=== PATIENT | female | born 1935 | race Caucasian/White ===

== ENCOUNTER 2017-04-16 00:47 | Emergency (ER) | payer OTHER, MEDICARE ==
[2017-04-16 01:16] VITALS: BP 95/42; PULSE 99; TEMP 97.5; BMI 21.6
--- NOTE | 2017-04-16 01:21 | PDOC ---
History of Present Illness - General History Source: Patient, Old Records Exam Limitations: No Limitations - History of Present Illness Initial Comments: 04/16/17 01:25 The patient is a 81 year old female, with a significant past medical history of COPD, HTN and thyroid disease, who presents to the emergency department with shortness of breath for the past 3 hours. She reports that she has been using her inhaler with minimal relief of her symptoms. She notes that she has not been admitted for over a year. She reports that she has a F/U appointment with her youth advocate on 04/21/17 for regular follow up. The patient denies chest pain, headache and dizziness. Denies fever, chills, nausea, vomit, diarrhea and constipation. Denies dysuria, frequency, urgency and hematuria. 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 Bryan PMD - Dr. Cecilio Noel <Reji Kern - Last Filed: 04/16/17 01:25> <Dorothy Marr - Last Filed: 04/16/17 01:44> - General Chief Complaint: Weakness Stated Complaint: FLU LIKE SYMPTONS Time Seen by Provider: 04/16/17 01:09 Past History <Reji Kern - Last Filed: 04/16/17 01:25> - Past Medical History COPD: Yes HTN: Yes Thyroid Disease: Yes - Suicide/Smoking/Psychosocial Hx Smoking Status: No Smoking History: Unknown if ever smoked Have you smoked in the past 12 months: No Number of Cigarettes Smoked Daily: 0 If you are a former smoker, when did you quit?: 1995 Information on smoking cessation initiated: No Hx Alcohol Use: No Drug/Substance Use Hx: No Substance Use Type: None <Dorothy Marr - Last Filed: 04/16/17 01:44> - Past Medical History Allergies/Adverse Reactions: Allergies Allergy/AdvReac Type Severity Reaction Status Date / Time No Known Allergies Allergy Verified 04/16/17 01:12 Home Medications: Ambulatory Orders Aspirin [ASA -] 81 mg PO DAILY #0 tab.chew 08/21/12 Amlodipine Besylate 10 mg PO DAILY 06/12/15 Levothyroxine [Synthroid -] 50 mcg PO DAILY 06/12/15 Metoprolol Succinate [Toprol Xl -] 25 mg PO DAILY 06/12/15 Olmesartan/Hydrochlorothiazide [Benicar Hct 40-25 mg Tablet] 1 each PO DAILY 02/14 Review of Systems - Review of Systems Able to Perform ROS?: Yes Comments:: 04/16/17 01:26 GENERAL/CONSTITUTIONAL: No fever or chills. HEAD, EYES, EARS, NOSE AND THROAT: No change in vision. No ear pain or discharge. No sore throat.- CARDIOVASCULAR: (+) Shortness of breath. No chest pain RESPIRATORY: No cough, wheezing, or hemoptysis. GASTROINTESTINAL: No nausea, vomiting, diarrhea or constipation. GENITOURINARY: No dysuria, frequency, or change in urination. MUSCULOSKELETAL: No joint or muscle swelling or pain. No neck or back pain. SKIN: No rash NEUROLOGIC: No headache, vertigo, loss of consciousness, or change in strength/ sensation. ENDOCRINE: No increased thirst. No abnormal weight change HEMATOLOGIC/LYMPHATIC: No anemia, easy bleeding, or history of blood clots. ALLERGIC/IMMUNOLOGIC: No hives or skin allergy. <Reji Kern - Last Filed: 04/16/17 01:25> *Physical Exam - Vital Signs Last Vital Signs Temp Pulse Resp BP Pulse Ox 97.5 F L 99 H 14 95/42 96 04/16/17 01:12 04/16/17 01:12 04/16/17 01:12 04/16/17 01:12 04/16/17 01:12 - Physical Exam Comments: 04/16/17 01:26 GENERAL: (+) Pale appearing. Awake, alert, and fully oriented, in no acute distress HEAD: No signs of trauma, normocephalic, atraumatic EYES: PERRLA, EOMI, sclera anicteric, conjunctiva clear ENT: Auricles normal inspection, hearing grossly normal, nares patent, oropharynx clear without exudates. Moist mucosa NECK: Normal ROM, supple, no lymphadenopathy, JVD, or masses LUNGS: (+) Completely diminished breath sounds. No distress, speaks full sentences. HEART: Regular rate and rhythm, normal S1 and S2, no murmurs, rubs or gallops, peripheral pulses normal and equal bilaterally. ABDOMEN: Soft, nontender, normoactive bowel sounds. No guarding, no rebound. No masses EXTREMITIES : Normal inspection, Normal range of motion, no edema. No clubbing or cyanosis. NEUROLOGICAL: Cranial nerves II through XII grossly intact. Normal speech, normal gait, no focal sensorimotor deficits SKIN: Warm, Dry, normal turgor, no rashes or lesions noted. <Reji Kern - Last Filed: 04/16/17 01:25> - Vital Signs Last Vital Signs Temp Pulse Resp BP Pulse Ox 97.5 F L 99 H 14 95/42 96 04/16/17 01:12 04/16/17 01:12 04/16/17 01:12 04/16/17 01:12 04/16/17 01:12 <Dorothy Marr - Last Filed: 04/16/17 01:44> Heart Score/ECG Review - ECG Intrepretation Comment:: 04/16/17 01:42 sinus at 98, Rward axis, incomplete RBBB, no acute st/t wave findings 04/16/17 01:43 ekg unchanged from prior <Dorothy Marr - Last Filed: 04/16/17 01:44> Medical Decision Making - Medical Decision Making 04/16/17 01:38 a/p: 81yo female with sob since 10p tonight -hx of emphysema - used inhalers without relief -pt is deaf, daughter is at the bedside, pt speaking in full sentences -diminished BS - no wheezing, suspect COPD exacerbation no rales or rhonchi will give nebs, solumedrol, ivf hydration -will check labs, cxr no f/c no cough no abd pain pt is pale on exam - will check cbc 04/16/17 01:41 pt will be signed out the oncoming ED physician pending labs, cxr, ekg and re- eval <Dorothy Marr - Last Filed: 04/16/17 01:44> *DC/Admit/Observation/Transfer - Attestations Scribe Attestion: 04/16/17 01:26 Documentation prepared by Reji Kern, acting as medical technologist blood bank for Dorothy Marr DO <Reji Kern - Last Filed: 04/16/17 01:25> - Attestations Physician Attestion: 04/16/17 01:40 I, Dr. Dorothy Marr, DO, attest that this document has been prepared under my direction and personally reviewed by me in its entirety. I further attest, that it accurately reflects all work, treatment, procedures and medical decision -making performed by me. <Dorothy Marr - Last Filed: 04/16/17 01:44> Diagnosis at time of Disposition: Dyspnea - Referrals Referrals: Cecilio Noel MD [Staff Physician] -
[2017-04-16] MEDS ORDERED: ALBUTEROL SO4 2.5/IPRATROPIUM 0.5 INH SOL 3 ML VIAL.NEB. NEB ONE ×3 (01:22→01:44)
[2017-04-16] MEDS ORDERED: methylPREDNISolone NA SUCC 125 MG/2 ML VIAL IVPB ONE (01:22)
[2017-04-16] MEDS ORDERED: SODIUM CHLORIDE 0.9% 1000 ML INFUS.BAG IV ONE (01:22)
[2017-04-16] MEDS ORDERED: methylPREDNISolone NA SUCC 125 MG/2 ML VIAL ONE (01:44)
[2017-04-16 01:47] LABS: BASO % 0.4 % (0-2.0); EOS % 0.2 % (0-4.5); HEMATOCRIT 36.2 % (32.4-45.2); HEMOGLOBIN 12.1 GM/dL (10.7-15.3); LYMPH % 8.8 % (8-40); MCH 28.2 pg (25.7-33.7); MCHC 33.3 g/dl (32.0-36.0); MEAN CELL VOLUME 84.7 fl (80-96); MEAN PLT VOLUME 9.5 fl (7.5-11.1); MONO % 6.8 % (3.8-10.2); NEUT % 83.8 % (42.8-82.8); PLATELET COUNT 374 K/MM3 (134-434); RBC 4.28 M/mm3 (3.60-5.2); RDW 14.4 % (11.6-15.6); WHITE BLOOD COUNT 9.9 K/mm3 (4.0-10.0)
[2017-04-16 02:12] LABS: ANION GAP 14 (8-16); BILIRUBIN,TOTAL 0.4 mg/dL (0.2-1.0); BLOOD UREA NITROGEN 35 mg/dL (7-18); CALCIUM 9.4 mg/dL (8.5-10.1); CHLORIDE 99 mmol/L (98-107); CO2 24 mmol/L (21-32); CREATININE 1.4 mg/dL (0.55-1.02); GLUCOSE,RANDOM 129 mg/dL (74-106); POTASSIUM 4.5 mmol/L (3.5-5.1); SGOT/AST 11 U/L (15-37); SGPT/ALT 19 U/L (12-78); SODIUM 137 mmol/L (136-145); TOT PROT 6.4 g/dl (6.4-8.2)
[2017-04-16 02:14] LABS: ALK PHOS 106 U/L (45-117)
--- NOTE | 2017-04-16 03:37 | PDOC ---
*Physical Exam - Vital Signs Last Vital Signs Temp Pulse Resp BP Pulse Ox 97.5 F L 99 H 14 95/42 96 04/16/17 01:12 04/16/17 01:12 04/16/17 01:12 04/16/17 01:12 04/16/17 01:12 ED Treatment Course - LABORATORY CBC & Chemistry Diagram: 04/16/17 01:32 04/16/17 01:32 - ADDITIONAL ORDERS Additional order review: Laboratory Results 04/16/17 01:32 Sodium 137 Potassium 4.5 Chloride 99 Carbon Dioxide 24 Anion Gap 14 BUN 35 H Creatinine 1.4 H Creat Clearance w eGFR 36.27 Random Glucose 129 H Calcium 9.4 Total Bilirubin 0.4 D AST 11 L ALT 19 Alkaline Phosphatase 106 Creatine Kinase 44 Troponin I < 0.02 Total Protein 6.4 Albumin 3.0 L 04/16/17 01:32 RBC 4.28 MCV 84.7 MCHC 33.3 RDW 14.4 MPV 9.5 Neutrophils % 83.8 H Lymphocytes % 8.8 D Monocytes % 6.8 Eosinophils % 0.2 Basophils % 0.4 - Medications Given in the ED: ED Medications Discontinued Medications Generic Name Dose Route Start Last Admin Trade Name Freq PRN Reason Stop Dose Admin Albuterol/Ipratropium 1 amp 04/16/17 01:22 04/16/17 01:58 Duoneb - NEB 04/16/17 01:23 1 amp ONCE ONE Administration Albuterol/Ipratropium 1 amp 04/16/17 01:23 04/16/17 01:59 Duoneb - NEB 04/16/17 01:24 1 amp ONCE ONE Administration Methylprednisolone Sodium Succinate 125 mg 04/16/17 01:22 04/16/17 01:59 Solu-Medrol - IVPB 04/16/17 01:23 125 mg ONCE ONE Administration Sodium Chloride 1,000 ml 04/16/17 01:22 04/16/17 01:59 Normal Saline - IV 04/16/17 01:23 1,000 ml ONCE ONE Administration Medical Decision Making - Medical Decision Making 04/16/17 03:36 Pt feels better after treatment. Pt will be discharged Rx Medrol Dose benito. sent to pharmacy. *DC/Admit/Observation/Transfer Diagnosis at time of Disposition: Dyspnea - Discharge Dispostion Disposition: HOME Condition at time of disposition: Stable Admit: No - Referrals Referrals: Cecilio Noel MD [Primary Care Provider] - - Patient Instructions Printed Discharge Instructions: DI for Shortness of Breath Additional Instructions: Please follow up with your doctor on your scheduled appointment. TAke medication as directed. Return if any problems. - Post Discharge Activity
--- NOTE | 2017-04-16 11:48 | EKG ---
Test Reason : Blood Pressure : / mmHG Vent. Rate : 098 BPM Atrial Rate : 098 BPM P-R Int : 170 ms QRS Dur : 112 ms QT Int : 372 ms P-R-T Axes : 071 093 040 degrees QTc Int : 474 ms POOR DATA QUALITY, INTERPRETATION MAY BE ADVERSELY AFFECTED NORMAL SINUS RHYTHM POSSIBLE LEFT ATRIAL ENLARGEMENT RIGHTWARD AXIS INCOMPLETE RIGHT BUNDLE BRANCH BLOCK BORDERLINE ECG WHEN COMPARED WITH ECG OF 12-JUN-2015 07:38, INCOMPLETE RIGHT BUNDLE BRANCH BLOCK HAS REPLACED RIGHT BUNDLE BRANCH BLOCK Confirmed by NABOR MORE MD ([id number]) on 04/16/2017 11:47:51 AM Referred By: Confirmed By:NABOR MORE MD
== END 2017-04-16 04:44 | disposition home or self-care (01) ==
LOC: JER 00:47
PROC: 3E0F7GC Introduction of Other Therapeutic Substance into Respiratory Tract, Via Natural or Artificial Opening (ICD-10-PCS; principal; 2017-04-16)
PROC: 3E0F7GC Introduction of Other Therapeutic Substance into Respiratory Tract, Via Natural or Artificial Opening (ICD-10-PCS; 2017-04-16)
PROC: 3E0333Z Introduction of Anti-inflammatory into Peripheral Vein, Percutaneous Approach (ICD-10-PCS; 2017-04-16)
DX: J44.9 Chronic obstructive pulmonary disease, unspecified (principal); R06.02 Shortness of breath; I10 Essential (primary) hypertension; E03.9 Hypothyroidism, unspecified
CPT/HCPCS: 36415; 71046-TC-FY; 80053; 82550; 84484; 85025; 93005; 93010; 99281-25

== ENCOUNTER 2018-05-16 11:41 | Inpatient (IN) | payer OTHER, MEDICARE ==
--- NOTE | 2018-05-16 12:05 | PDOC ---
History of Present Illness - General Chief Complaint: CVA/TIA Stated Complaint: POSSIBLE STROKE Time Seen by Provider: 05/16/18 11:44 - History of Present Illness Initial Comments: The pt is an 83F w/ a reported history of possible CVA w/ residual RUE tremor, HTN, hypothyroidism who presents for evaluation for stroke symptoms. Per the daughter, the pt was last known at her baseline yesterday at approximately 1700 and was last seen at 2100 but the daughter did not speak with the pt at that time. At 0500 today, the daughter noted that the pt was unable to speak or take her medications. She also noted RUE weakness at that time. Daughter denies any noticed recent illness, fevers, complaints, or known injury/ trauma. Daughter also denies known history of Parkinson's 05/16/18 12:06 tPA Exclusion checklist 3-4.5h - Time Elapsed Date last known well: 05/15/18 Time last known well: 17:00 Elaspsed time: 1 Day(s) and 1 Hour(s) and 59 Minutes - Ineligibility reason(s) Reasons No tPA given: Outside of window - delayed arrival NIH Stroke Scale - Last Known Well Date/Time & Onset Date Last Known Well: 05/15/18 Time Last Known Well: 17:00 - Initial Evaluation Level of consciousness: Alert Ask patient the month and their age: Both incorrect Ask patient to open & close eyes; make fist and let go: Both incorrect Best gaze (horizontal eye movement): Normal Visual field testing: No visual field loss Facial paresis (Show teeth/raise eyebrows/close eyes tight): Minor paralysis ( flattened nasolabial fold, asymmetry on smiling) (minor R nasolabial flattening) Motor Function: Left Arm: Normal Motor Function: Right Arm: No effort against gravity (RUE tremor and rigidity) Motor Function: Left Leg: Some effort against gravity (withdraw to pain) Motor Function: Right Leg: Some effort against gravity (withdraw to pain) Limb Ataxia: Present in one limb (RUE tremor) Sensory(Use pinprick test arms,legs,trunk,face/side to side): Normal Best language (Describe picture, name items, read sentences): Severe aphasia Dysarthria (read several words): Near unintelligible or unable to speak Extinction and Inattention: No abnormality - Total Score NIH Stroke Scale Score: 17 Past History - Past Medical History Allergies/Adverse Reactions: Allergies Allergy/AdvReac Type Severity Reaction Status Date / Time No Known Allergies Allergy Verified 04/16/17 01:12 Home Medications: Ambulatory Orders Aspirin [ASA -] 81 mg PO DAILY #0 tab.chew 08/21/12 Amlodipine Besylate 10 mg PO DAILY 06/12/15 Levothyroxine [Synthroid -] 75 mcg PO DAILY 06/12/15 Metoprolol Succinate [Toprol Xl -] 25 mg PO DAILY 06/12/15 Olmesartan/Hydrochlorothiazide [Benicar Hct 40-25 mg Tablet] 1 each PO DAILY 02/14 Methylprednisolone [Medrol Dose Marco A] 4 mg PO ASDIR #21 tablet 04/16/17 CVA: Yes COPD: Yes HTN: Yes Thyroid Disease: Yes - Immunization History Immunization Up to Date: Yes - Suicide/Smoking/Psychosocial Hx Smoking Status: No Smoking History: Never smoked Have you smoked in the past 12 months: No Number of Cigarettes Smoked Daily: 0 If you are a former smoker, when did you quit?: 1995 Hx Alcohol Use: No Drug/Substance Use Hx: No Substance Use Type: None Review of Systems - Review of Systems Able to Perform ROS?: No (2/2 medical condition) *Physical Exam - Vital Signs Last Vital Signs Temp Pulse Resp BP Pulse Ox 97.4 F L 92 H 20 126/50 L 99 05/16/18 11:51 05/16/18 11:51 05/16/18 11:51 05/16/18 11:51 05/16/18 11:51 - Physical Exam Comments: GENERAL: Awake, in no apparent distress HEAD: No signs of trauma, normocephalic, atraumatic EYES: PERRLA, EOMI, tracts movement ENT: Hearing grossly normal, nares patent, oropharynx clear without exudates. Moist mucosa LUNGS: No distress, speaks full sentences, clear to auscultation bilaterally HEART: Regular rate and rhythm, normal S1 and S2, no murmurs appreciated, peripheral pulses normal and equal bilaterally ABDOMEN: Soft, non-distended, with normoactive bowel sounds EXTREMITIES: RUE tremor; no lesions/abrasions/lacerations noted; all extremities with movement (further described below) NEUROLOGICAL: Pt able to track, blink, smile, hearing grossly intact; does not follow commands; not able to say anything other than 'yeah' and laugh; RUE w/ tremor and rigidity; LUE w/o drift and FROM; BLE withdraw to pain but unable to maintain straight leg raise (possibly 2/2 not understanding instruction vs decreased strength) SKIN: Warm, Dry 05/16/18 18:51 Moderate Sedation - Procedure Monitoring Vital Signs: Procedure Monitoring Vital Signs Temperature 97.4 F L 05/16/18 11:51 Pulse Rate 92 H 05/16/18 11:51 Respiratory Rate 20 05/16/18 11:51 Blood Pressure 126/50 L 05/16/18 11:51 O2 Sat by Pulse Oximetry (%) 99 05/16/18 11:51 ED Treatment Course - LABORATORY CBC & Chemistry Diagram: 05/16/18 13:11 05/16/18 13:11 Medical Decision Making - Medical Decision Making The pt is an 83F w/ a history previous CVA, asthma, hypothyroidism, HTN who presents for evaluation of stroke CT Head w/ intracranial hemorrhage within L frontal lobe w/ mild mass effect Labs sent/pending Case discussed w/ NSGY and Neurology: Keppra 1g IV once Hold ASA Plan for admission to ICU -Case discussed with Dr. Alcantar and ICU resident Mild leukocytosis to 14.7 No anemia No RUSSELL Lytes wnl Trop I neg 05/16/18 12:53 CXR w/o acute pathology 05/16/18 18:57 *DC/Admit/Observation/Transfer Diagnosis at time of Disposition: Hemorrhagic stroke - Discharge Dispostion Condition at time of disposition: Guarded Decision to Admit order: Yes - Referrals - Patient Instructions - Post Discharge Activity
[2018-05-16] MEDS ORDERED: levETIRAcetam 500 MG/5 ML INJECTION VIAL IVPB ONE ×2 (12:52→14:22)
--- NOTE | 2018-05-16 13:18 | CONSULT ---
Consult Consult Specialty:: ICU Referred by:: ED Reason for Consultation:: Hemorhagic Stroke - History of Present Illness Chief Complaint: R sided weakness and aphasia History of Present Illness: Pt is an 83 yo F with PMHx of hypothyroidism, HTN, previous CVA (RUE tremor residual) on ASA presenting with last known well at 5pm yesterday and now aphasia (expressive and possible receptive), and weakness of RUE and RLE noted since 9am. Pt lives with daughter and yesterday was able to speak (yell at her daughter), feed herself at around 5pm then went to bed. Daughter checked on her around 9pm with lights off and noted her sleeping. This am around 4am, when she did not get up to use the bathroom, daughter was concerned and checked on her by 5am. Pt was able to grasp the medication (synthroid) at 5am but could not lift her hand up to take it. By 9am patient was unable to use her RUE to feed herself, or raise her RLE while being dressed. Daughter also thought she noted flattening of her face. Patient has been awake, no seizures, family reports arrhythmias (possible jeremy- tachy) in past. Daughters say patient uses hearing aid (as she selectively obeys commands). ED dicussed with neuro- Dr Fair and NeuroSx- Dr Marin No surgical intervention at this time ICU monitoring recommended with BP control on home meds CTA- for aneurysm eval and follow up CT in am CT brain: Hemorrhagic stroke in L frontal medial 3.0x 2.5 with some midline shift NIHSS in ED Alert-0 Aphasic-+2 Performs 1 task-+1 Normal gaze-0 Visual loss-0 Facial Palsy-0 Left arm motor drift-0 R arm motor drift-+3 Left leg motor drift-+2 R leg motor drift-+3 Ataxia-0 Sensation-0 Aphasia-+2 Dysarthria-+1 Extinction-0 NIHSS-14 Reassement at 5.40pm Alert-0 Aphasic-+2 Performs 1 task-+1 Normal gaze-0 Visual loss-0 Facial Palsy-0 Left arm motor drift-0 R arm motor drift-+3 Left leg motor drift-0 R leg motor drift-+2 Ataxia-0 Sensation-0 Aphasia-+2 Dysarthria-+1 Extinction-0 NIHSS-12 - History Source History Provided By: Family Member, Medical Record Limitations to Obtaining History: Clinical Condition - Past Medical History 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 Cardio/Vascular: Yes: HTN Pulmonary: Yes: COPD (Emphysema on home steroids) - Alcohol/Substance Use Hx Alcohol Use: No - Smoking History Smoking history: Never smoked Have you smoked in the past 12 months: No Aproximately how many cigarettes per day: 0 If you are a former smoker, when did you quit?: 1995 - Social History Usual Living Arrangement: With Child ADL: Independent Home Medications - Allergies Allergies/Adverse Reactions: Allergies Allergy/AdvReac Type Severity Reaction Status Date / Time No Known Allergies Allergy Verified 04/16/17 01:12 - Home Medications Home Medications: Ambulatory Orders Aspirin [ASA -] 81 mg PO DAILY #0 tab.chew 08/21/12 Amlodipine Besylate 10 mg PO DAILY 06/12/15 Levothyroxine [Synthroid -] 75 mcg PO DAILY 06/12/15 Metoprolol Succinate [Toprol Xl -] 25 mg PO DAILY 06/12/15 Olmesartan/Hydrochlorothiazide [Benicar Hct 40-25 mg Tablet] 1 each PO DAILY 02/14 Methylprednisolone [Medrol Dose Marco A] 4 mg PO ASDIR #21 tablet 04/16/17 Review of Systems Unable to obtain ROS, reason: patient's condition Physical Exam Vital Signs: Vital Signs Temperature 97.4 F L 05/16/18 11:51 Pulse Rate 92 H 05/16/18 11:51 Respiratory Rate 20 05/16/18 11:51 Blood Pressure 126/50 L 05/16/18 11:51 O2 Sat by Pulse Oximetry (%) 99 05/16/18 11:51 Constitutional: Yes: No Distress Eyes: Yes: Conjunctiva Clear (Unable to track), EOM Intact HENT: Yes: Atraumatic, Other (Uvula and tongue central) Neck: Yes: Supple Cardiovascular: Yes: Regular Rate and Rhythm, S1, S2 Respiratory: Yes: CTA Bilaterally Gastrointestinal: Yes: Soft Musculoskeletal: Yes: Other (Increased tone RUE>LUE Hand grasp-4/5 LUE, 2/5 LUE abduction RUE-0/5, 5/5 LUE withdraws b/l LE babinski-downward hypertonia bilateral LE) Edema: No Neurological: Yes: Alert, Babinski negative, Dysarthria, Tremors (RUE), Weakness (RUE/RLE). No: Loss of Sensation, Numbness, Paresthesia ...Motor Strength: LUE (4/5), LLE (3/5), RUE (2/5), RLE (2/5) Psychiatric: Yes: Alert Assessment/Plan Ambulatory Orders Aspirin [ASA -] 81 mg PO DAILY #0 tab.chew 08/21/12 Amlodipine Besylate 10 mg PO DAILY 06/12/15 Levothyroxine [Synthroid -] 75 mcg PO DAILY 06/12/15 Metoprolol Succinate [Toprol Xl -] 25 mg PO DAILY 06/12/15 Olmesartan/Hydrochlorothiazide [Benicar Hct 40-25 mg Tablet] 1 each PO DAILY 02/14 Methylprednisolone [Medrol Dose Marco A] 4 mg PO ASDIR #21 tablet 04/16/17 Current Medications Amlodipine Besylate (Norvasc -) 10 mg PO DAILY MILLY Levothyroxine Sodium (Synthroid -) 75 mcg PO DAILY MILLY Metoprolol Succinate (Toprol Xl -) 25 mg PO DAILY MILLY Non-Formulary Medication (Olmesartan/Hydrochlorothiazide [Benicar Hct 40-25 Mg Tablet]) 1 each PO DAILY MILLY Assessment /Plan: Pt is an 83 yo F with PMHx of hypothyroidism, HTN, previous CVA (RUE tremor residual) on ASA presenting with last known well at 5pm yesterday and now aphasia (expressive and possible receptive), and weakness of RUE and RLE noted since 9am. #Neuro: CT head-Hemorrhagic CVA with some midline shift Hx of Prior CVA (May 2017), RUE tremor as residual Hemorrhagic stroke, not a candidate for TPA ASA held Per neuro/neuro sx- no surgical intervention at this time Strict BP control <140/90 Cont Cardiac monitoring Speech and swallow eval PO meds- D/W Dr Marin (pt does not need to be NPO today), Will do bed side swallow PO meds with apple sauce EKG trops CMP, Mg, PH CTA r/o aneurysm CT brain w/o contrast in am tomorrow to follow up ICH TSH in am No hx of Parkinsons in past- pt now with rigidity >RUE Neurochecks #Cards: Unclear hx of arrythmia, pt on toprol No clear CAD hx prior HTN Cont PO meds with apple sauce For bed side swallow eval today Speech and swallow eval am ECHO in am CTA neck On levothyroxine Lipid profile EKG #Respiratory Stable Monitor #Endocrine Hypothyroidism, unclear hx of arrythmias Cont levothyroxine HgbA1c- no hx of DM #FEN No standing fluids Monitor lytes NPO except for meds with apple sauce May escalate diet if she passes bedside swallow eval #Dispo Discussed with daughter's by the bedside, no HCP, unaware of patient's wishes ICU level care for cardiac monitoring and neurochecks Visit type - Emergency Visit Emergency Visit: Yes ED Registration Date: 05/16/18 Care time: The patient presented to the Emergency Department on the above date and was hospitalized for further evaluation of their emergent condition. - New Patient This patient is new to me today: Yes Date on this admission: 05/16/18 - Critical Care Critical Care patient: Yes Total Critical Care Time (in minutes): 40 Critical Care Statement: The care of this patient involved high complexity decision making to prevent further life threatening deterioration of the patient 's condition and/or to evaluate & treat vital organ system(s) failure or risk of failure.
[2018-05-16 13:34] LABS: URINE APPEARANCE SLCLOUDY; URINE BILIRUBIN NEGATIVE (<2.0 mg/dL); URINE COLOR YELLOW; URINE GLUCOSE (UA) NEGATIVE (NEGATIVE); URINE KETONE NEGATIVE (NEGATIVE); URINE LEUK ESTERASE NEGATIVE (NEGATIVE); URINE NITRITE NEGATIVE (NEGATIVE); URINE PROTEIN 2+ (NEGATIVE); URINE UROBILINOGEN NEGATIVE mg/dL (0.2-1.0)
--- NOTE | 2018-05-16 13:35 | PN ---
Progress Note (short form) - Note Progress Note: NEUROSURGERY CONSULT DICTATED Chart reviewed Pt examined CT scan reviewed Daughter at bedside H/o COPD, HTN and thyroid disease, last seen well last night . AT 0500 this AM, pt was unable to speak or take her medications. Daughter reports history of stroke approximately 6 months ago. At baseline, pt is reportedly able to follow commands, oriented, and holds normal conversation. Also has a RUE tremor. PE: 97.6, 126/50 HEENT- NC/AT; Neck- supple; Cor- RR; Lungs- CTA B; Abd- benign; Ext- no sign of DVT A/A; not speaking much; follow simple commands CN- EOMF, tongue midline; Motor- increased tone B UE/LE R > L, R LE 2/5 R UE 3/ 5, L side 4-, withdrawing to pain B; Sensation- grossly intact LT; cerebellar- difficult to assess Head CT- mild-moderate cerebral atrophy; acute L anterior medial frontal 2. x 2.5 irregular shaped acute ICH with mild mass effect and edema; chronic R frontal periventricular and BG stroke; no midline shift or HCP; no SAH Cerebrovascular disease with acute L med frontal ICH Philra for sz prophylaxis x 1 week (loading dose then 500 mg bid) BP monitoring and control SBP <160; DBP < 90 Hold ASA Check CBC/platelet/INR/ptt CTA baseline if BUN/Cr acceptable, to r/o aneurysm, though low likelihood given CT appearance Repeat head CT in AM f/u ICH and mass effect No neurosurgical intervention indicated D/w ED team Dr Goins and admitting medical team Speech/PT evaluation ICU for BP and neuro monitoring
--- NOTE | 2018-05-16 13:37 | PDOC ---
Attending Attestation - HPI HPI: 05/16/18 13:37 The patient is a 83 year old female, with a significant past medical history of CVA (~6mo ago without deficits, diagnosed via outpatient workup), COPD, HTN and thyroid disease, who presents to the emergency department with, facial droop and LUE weakness. As per patients daughter, she went to sleep at 9pm last night (prior to going to sleep daughter notes she was mean) and woke up this morning at 5am with right facial droop, and LUE weakness. While in the ED, patient patient does not follow commands and has a RUE tremor which is similar to her baseline. Allergies: NKDA Past surgical history: None reported. Social history: Nonsmoker. Denies EtOH use and recreational drug use. Primary Care Physician: Dr. Cecilio Noel Professor Of Nursing: Dr. Bryan Last known well: 05/15/2018 9PM - Medical Decision Making 12:21PM Call placed to Dr. Fair, neurologist household refrigeration mechanic, case discussed with resident Dr. Starks. 12:40PM Call placed to Dr. Marin, neurosurgeon household refrigeration mechanic, case discussed with resident Dr. Starks. 12:55PM Call placed to ICU resident, Dr. Nica Antonio, case discussed with resident Dr. Starks and accepted. 1:10PM Call placed to Dr. Alcantar, admitting physician for Dr. Cecilio Noel, case discussed with resident Dr. Starks and accepted. <Kylie Rae - Last Filed: 05/16/18 13:37> - Resident Resident Name: Sawyer Starks - ED Attending Attestation I have performed the following: I have examined & evaluated the patient, The case was reviewed & discussed with the resident, I agree w/resident's findings & plan, Exceptions are as noted - Physicial Exam PE: 05/16/18 13:31 GENERAL: The patient is awake, unable to speak HEAD: Normocephalic, atraumatic. EYES: extraocular movements intact, sclera anicteric, conjunctiva clear. ENT: moist ucus membranes NECK: Normal range of motion, supple LUNGS: Breath sounds equal, clear to auscultation bilaterally. No wheezes, no rhonchi, no rales. HEART: Regular rate and rhythm, normal S1 and S2 without murmur, rub or gallop. ABDOMEN: Soft, nontender, No guarding, no rebound. . No CVA tenderness EXTREMITIES: no edema on b/l LE NEUROLOGICAL: No facial assymetry, Normal speech, weakness in RUE, RLE, able to hold LUE up for 10 seconds, withdraws to painful stilmlus on LLE PSYCH: Normal mood, normal affect. SKIN: Warm, Dry, normal turgor, - Critical Care Time Total Critical Care Time: 35 Critical Care Statement: The care of this patient involved high complexity decision making to prevent further life threatening deterioration of the patient 's condition and/or to evaluate & treat vital organ system(s) failure or risk of failure. - Medical Decision Making 05/16/18 13:33 Note: I was immediately bedside evaluation the patient upon arrival by EMS along with resident Raudel - this note was opened and documented later in the shift due to managing multiple critical patients concurrently 83y F hx of cva (w/o residual deficits, found on outpatient CT) COPD, HTN and thyroid disease presents with weakness noted approx 5am this morning - family noticed the patient was not able to bring meds to her mouth when given. Family also ntoed pt seemd to be not herself and more angry yesterday. Later they ccalled EMS. Upon arrival pt was aphasic, had RUE weakness. Pt unable to cooperate with exam. Code kim was not initiated due to last well known being at 9pm. Pts vitals were nromal upon arrival. CT was obtained that revealed blood in the anterior cerebrum - likely explains her sypmtoms Discussed with neurology and neurosurgery pt started on keppra pt not currently asa beside baby asa. pt spontaneously respiring. no concern for airway comprmise, but will contineu to observe closely will admit to ICU <Sea Goins - Last Filed: 05/18/18 22:16> Heart Score/ECG Review - ECG Impressions Comment:: 05/16/18 13:37 Twelve-lead EKG was performed and reviewed by me. There is normal sinus rhythm with a normal rate. Rate of [address] changes suggestive of acute ischemia <Sea Goins - Last Filed: 05/18/18 22:16> Attestations - Attestations 05/16/18 13:38 Documentation prepared by Kylie Rae, acting as medical office rep for Sea Goins MD. <Kylie Rae - Last Filed: 05/16/18 13:37> - Attestations Physician Attestation: 05/18/18 22:10 A portion of this note was documented by scribe services under my direction. I have reviewed the details of the note, within reason, and agree with the documentation with the following case summary and management plan written by me <Sea Goins - Last Filed: 05/18/18 22:16>
[2018-05-16 13:44] LABS: BASO % 0.3 % (0-2.0); EOS % 0.1 % (0-4.5); HEMATOCRIT 35.7 % (32.4-45.2); HEMOGLOBIN 12.2 GM/dL (10.7-15.3); LYMPH % 7.7 % (8-40); MCH 29.2 pg (25.7-33.7); MCHC 34.1 g/dl (32.0-36.0); MEAN CELL VOLUME 85.6 fl (80-96); MEAN PLT VOLUME 9.6 fl (7.5-11.1); MONO % 5.1 % (3.8-10.2); NEUT % 86.8 % (42.8-82.8); PLATELET COUNT 307 K/MM3 (134-434); RBC 4.17 M/mm3 (3.60-5.2); RDW 14.2 % (11.6-15.6); WHITE BLOOD COUNT 14.7 K/mm3 (4.0-10.0)
[2018-05-16 13:45] LABS: INR 1.08 (0.83-1.09); PROTHROMBIN TIME (PATIENT) 12.8 SEC (9.7-13.0)
[2018-05-16 13:58] LABS: ALBUMIN 3.5 g/dl (3.4-5.0); ALK PHOS 109 U/L (45-117); ANION GAP 8 MMOL/L (8-16); BILIRUBIN,TOTAL 0.5 mg/dL (0.2-1); BLOOD UREA NITROGEN 21 mg/dL (7-18); CHLORIDE 106 mmol/L (98-107); CO2 26 mmol/L (21-32); CREATININE 0.6 mg/dL (0.55-1.3); GLUCOSE,RANDOM 113 mg/dL (74-106); POTASSIUM 3.6 mmol/L (3.5-5.1); SGOT/AST 12 U/L (15-37); SGPT/ALT 19 U/L (13-61); SODIUM 140 mmol/L (136-145); TOT PROT 7.2 g/dl (6.4-8.2)
[2018-05-16 14:35] LABS: EPI CELLS RARE /HPF (FEW); URINE MUCUS RARE
--- NOTE | 2018-05-16 15:38 | EKG ---
Test Reason : Blood Pressure : / mmHG Vent. Rate : 089 BPM Atrial Rate : 089 BPM P-R Int : 160 ms QRS Dur : 118 ms QT Int : 406 ms P-R-T Axes : 065 090 036 degrees QTc Int : 493 ms POOR DATA QUALITY, INTERPRETATION MAY BE ADVERSELY AFFECTED NORMAL SINUS RHYTHM RIGHT BUNDLE BRANCH BLOCK ABNORMAL ECG WHEN COMPARED WITH ECG OF 16-APR-2017 01:32, RIGHT BUNDLE BRANCH BLOCK HAS REPLACED INCOMPLETE RIGHT BUNDLE BRANCH BLOCK Confirmed by MD ROSIO, KUSHAL ([id number]) on 05/16/2018 3:37:58 PM Referred By: Confirmed By:KUSHAL AVELAR MD
[2018-05-16] MEDS ORDERED: amLODIPine BESYLATE 10 MG TABLET (FP) PO SCH (16:15)
[2018-05-16] MEDS ORDERED: DEXTROSE 5%-0.45% SALINE 1,000 ML IV SCH (17:30)
--- NOTE | 2018-05-16 18:22 | CONS ---
DATE OF CONSULTATION: REQUESTING PHYSICIAN: Dr. Moreira from the emergency department. CLEAT THROWER: Kelby Miller, Neurosurgery. CHIEF COMPLAINT: Left medial frontal hemorrhagic stroke. HISTORY OF PRESENT ILLNESS: The patient is an 83-year-old right-handed female with a history of hypertension, hypothyroidism, COPD, and possible stroke, who presented with the acute onset of speech difficulty and weakness overnight. She was seen fairly normal last night. Her baseline is that she was able to walk around and speak fairly normally. She also is able to carry out most activities of daily living. The daughter reports a possible stroke about 6 months ago which was managed outpatient by report. The details of that incidence is not clear from interviewing the daughters in the ED. Presently the patient complains of mild headache but has no nausea or vomiting. She has no witnessed seizure or LOC. She was found to be weak in the emergency room in terms of her upper and lower extremity. She was found to have a right upper extremity tremor. Prior imaging study was not available. Nothing seems to make her symptoms better or worse. Her speech has not recovered much since this morning. The patient has no fever or chills or any other signs of infection. She has no history of systemic malignancy. She did not complain of any prior headaches or one prior to her deterioration overnight. The patient's daughters are at bedside during the consultation. PAST MEDICAL HISTORY: Significant for hypertension, COPD, hypothyroidism and possible stroke. CURRENT MEDICATIONS: Include baby aspirin, Norvasc, levothyroxine, metoprolol, Benicar/hydrochlorothiazide, methylprednisolone. ALLERGIES: There are no known drug allergies. FAMILY HISTORY: Noncontributory. SOCIAL HISTORY: Used to smoke up to 15 years ago when she quit. She does not drink any alcohol. She is retired. She lives at home with her daughters. REVIEW OF SYSTEMS: Otherwise negative for major constitutional, head, neck, cardiovascular, pulmonary, gastrointestinal, genitourinary, endocrinologic, neurologic or psychological problem except for the above. PHYSICAL EXAMINATION:Vital Signs: Temperature is 97.4, blood pressure 126/50, pulse rate 92, O2 saturation is 99% on room air. HEENT: Shows her to be normocephalic and atraumatic. Anicteric. Neck: Supple with no carotid bruits. Coronary: Demonstrates a regular rhythm. Lungs: Clear bilaterally. Abdomen: Benign. Extremities: Show no signs of DVT. Neurologic: She is awake and alert. She does not speak but follows simple commands. Cranial nerve examination is intact 2-12. Motor examination shows right upper extremity to be 3/5, right lower extremity to be 2/5. Left side is currently 4- /5. She has increased tone about upper and lower extremities bilaterally. Sensory examination is grossly intact to light touch. Deep tendon reflexes are hyporeflexive throughout. She has an upgoing toe on the right. Cerebellar examination is difficult to assess. LABORATORY: Shows a serum glucose of 119. Serum chemistry is pending. CT scan of the head demonstrated acute left medial and left anteromedial frontal lobe parenchymal hemorrhage. There is no associated cervical hemorrhage. There is mild mass effect and edema. There is no hydrocephalus. There is moderate cerebral atrophy. There is chronic right frontal periventricular and basal ganglia hypodensity consistent with prior stroke. There is moderate paraventricular small vessel disease as well. IMPRESSION: 1. Acute left medial frontal hemorrhagic stroke with mild mass effect and edema but no midline shift. (r/o hypertensive bleed vs amyloid) 2. 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 3. Hypertension. 4. Hypothyroidism. 5. Chronic obstructive pulmonary disease. RECOMMENDATIONS: The patient presents with acute onset speech and motor deterioration. She is found to have an acute left medial frontal lobe hemorrhagic stroke with associated mild edema and mild mass effect. There is no significant midline shift at this time. Some increased edema and mass effect is expected, that does maximize about 48-72 hours after the internal hemorrhage. The cause of the patient's aphasia is less known, as this hemorrhage is medial frontal and lateral frontal region. The patient should be placed on Keppra with loading dose to be followed by regular dosing of 500 mg b.i.d. over the next 1 week at least. Baseline CBC with platelets as well as INR and PT should be checked. Head CTA is recommended to r/o aneurysm/AVM or vasculitis given the L GARY distribution ICH. Likelihood is low however for the above pathology. A followup noncontrast head CT scan is to be done tomorrow morning to assess the stability of the intraparenchymal hemorrhage as well as associated mass effect and edema. I expect the patient to improve after a possible initial course of deterioration as the swelling maximizes in the next day or 2. No neurosurgical intervention is indicated or recommended at this time. The above is discussed with the patient's 2 daughters in the emergency room. They also provided part of the history for this examination. All questions were answered. Aspirin should be held for at least the next 2 weeks. KELBY MILLER M.D. WILLI/[id number] MTDD
--- NOTE | 2018-05-16 20:21 | HP ---
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 Cardiovascular: Yes: HTN Pulmonary: Yes: COPD (Emphysema on home steroids) ...: No - Smoking History Smoking history: Never smoked Have you smoked in the past 12 months: No Aproximately how many cigarettes per day: 0 If you are a former smoker, when did you quit?: 1995 - Alcohol/Substance Use Hx Alcohol Use: No - Social History ADL: Independent Home Medications - Allergies Allergies/Adverse Reactions: Allergies Allergy/AdvReac Type Severity Reaction Status Date / Time No Known Allergies Allergy Verified 04/16/17 01:12 - Home Medications Home Medications: Ambulatory Orders Aspirin [ASA -] 81 mg PO DAILY #0 tab.chew 08/21/12 Amlodipine Besylate 10 mg PO DAILY 06/12/15 Levothyroxine [Synthroid -] 75 mcg PO DAILY 06/12/15 Metoprolol Succinate [Toprol Xl -] 25 mg PO DAILY 06/12/15 Olmesartan/Hydrochlorothiazide [Benicar Hct 40-25 mg Tablet] 1 each PO DAILY 02/14 Methylprednisolone [Medrol Dose Marco A] 4 mg PO ASDIR #21 tablet 04/16/17 Physical Examination Vital Signs: Vital Signs Temperature 98 F 05/16/18 17:26 Pulse Rate 98 H 05/16/18 18:00 Respiratory Rate 20 05/16/18 18:00 Blood Pressure 161/65 05/16/18 18:00 O2 Sat by Pulse Oximetry (%) 96 05/16/18 16:31 Labs: CBC, BMP 05/16/18 13:11 05/16/18 13:11
[2018-05-16] MEDS: levETIRAcetam 500 MG/5 ML INJECTION VIAL IVPB SCH (21:18)
[2018-05-16] MEDS ORDERED: SODIUM CHLORIDE 1,000 ML IV SCH (22:30)
--- NOTE | 2018-05-16 22:32 | CON.NEURO ---
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 Cardio/Vascular: Yes: HTN Pulmonary: Yes: COPD (Emphysema on home steroids) ...: No - Alcohol/Substance Use Hx Alcohol Use: No - Smoking History Smoking history: Never smoked Have you smoked in the past 12 months: No Aproximately how many cigarettes per day: 0 If you are a former smoker, when did you quit?: 1995 - Social History Usual Living Arrangement: With Child ADL: Independent Home Medications - Allergies Allergies/Adverse Reactions: Allergies Allergy/AdvReac Type Severity Reaction Status Date / Time No Known Allergies Allergy Verified 04/16/17 01:12 - Home Medications Home Medications: Ambulatory Orders Aspirin [ASA -] 81 mg PO DAILY #0 tab.chew 08/21/12 Amlodipine Besylate 10 mg PO DAILY 06/12/15 Levothyroxine [Synthroid -] 75 mcg PO DAILY 06/12/15 Metoprolol Succinate [Toprol Xl -] 25 mg PO DAILY 06/12/15 Olmesartan/Hydrochlorothiazide [Benicar Hct 40-25 mg Tablet] 1 each PO DAILY 02/14 Methylprednisolone [Medrol Dose Marco A] 4 mg PO ASDIR #21 tablet 04/16/17 Physical Exam-Neuro Vital Signs: Vital Signs Temperature 98 F 05/16/18 17:26 Pulse Rate 112 H 05/16/18 20:00 Respiratory Rate 22 H 05/16/18 20:00 Blood Pressure 145/86 05/16/18 20:00 O2 Sat by Pulse Oximetry (%) 96 05/16/18 20:00 Labs: CBC, BMP 05/16/18 13:11 05/16/18 13:11 INR, PTT INR 1.08 (0.83-1.09) 05/16/18 13:11 Assessment/Plan cc Brain Hemorrhage HPI 83 year old female history of Hypothyroidism, HTN, stroke . Patient is on aspirin and statin. Patient has is not able to talk and found to have right upper and lower extremity weakness. Patient live with daughter. Patient has right upper extremity weakness and tremors as baseline.Patient was seen by neurosurgery and not a surgical candidate. Patient bp was 161/65. Patient was able to talk at home and not able to talk here. Patient is in icu and i spent 35 minute doing critical care. She was able to eat in morning. PMH htn, copd, hld, stroke Allergies/Adverse Reactions: Allergies Allergy/AdvReac Type Severity Reaction Status Date / Time No Known Allergies Allergy Verified 04/16/17 01:12 Home Medication Aspirin [ASA -] 81 mg PO DAILY #0 tab.chew 08/21/12 Amlodipine Besylate 10 mg PO DAILY 06/12/15 Levothyroxine [Synthroid -] 75 mcg PO DAILY 06/12/15 Metoprolol Succinate [Toprol Xl -] 25 mg PO DAILY 06/12/15 Olmesartan/Hydrochlorothiazide [Benicar Hct 40-25 mg Tablet] 1 each PO DAILY 02/14 Methylprednisolone [Medrol Dose Marco A] 4 mg PO ASDIR #21 tablet 04/16/17 ROS, FH, reviewed in chart NEUROLOGICAL EXAMINATION Alert and able to talk objects, not talking she is completely aphasic, not able to follow command she is withdrawing to all extremity pupils reactive, no face asymmetry to painful stimuli ct head reviewed there is large left forntal lobe hemorrhagic stroke cta of neck and brain is pending neurosurgery consult appreciated Assessment 83 year old female history of Hypothyroidism, htn, stroek on aspirin and statin. Patient came with aphasia and unable to assess hemiparesis. Plan: hold aspirin - prognosis is guarded - dvt prophylaxis, speech and pt - repeat ct head in am no need for steroid - keep bp 160/90 range - continue keppra
[2018-05-17] MEDS: LEVOTHYROXINE NA 75 MCG TABLET (FP) PO SCH ×2 (06:28→10:17)
[2018-05-17 06:30] LABS: BASO % 0.5 % (0-2.0); EOS % 0.9 % (0-4.5); HEMATOCRIT 32.8 % (32.4-45.2); HEMOGLOBIN 11.4 GM/dL (10.7-15.3); LYMPH % 16.4 % (8-40); MCH 29.6 pg (25.7-33.7); MCHC 34.7 g/dl (32.0-36.0); MEAN CELL VOLUME 85.2 fl (80-96); MEAN PLT VOLUME 9.5 fl (7.5-11.1); MONO % 6.3 % (3.8-10.2); NEUT % 75.9 % (42.8-82.8); PLATELET COUNT 276 K/MM3 (134-434); RBC 3.84 M/mm3 (3.60-5.2); RDW 14.2 % (11.6-15.6); WHITE BLOOD COUNT 10.8 K/mm3 (4.0-10.0)
[2018-05-17 06:36] LABS: CHOLESTEROL 183 mg/dL (50-200); HDL CHOLESTEROL 70 mg/dL (40-60); TRIGLYCERIDES 97 mg/dL (0-150)
[2018-05-17 06:45] LABS: INR 1.08 (0.83-1.09); PROTHROMBIN TIME (PATIENT) 12.7 SEC (9.7-13.0)
[2018-05-17 06:47] LABS: ACTIVATED PTT 29.5 SECONDS (25.2-36.5)
--- NOTE | 2018-05-17 07:28 | PN ---
Physical Exam: SUBJECTIVE: 83 year old female with PMH CVA with residual RUE tremor, HTN, hypothyroidism, on ASA presented to ED 05/16/18 for inability to speak and right sided weakness. Pt was found to have ICH (left frontal lobe) with midline shift. No surgical intervention was indicated per neuro/neurosurgery. Pt was admitted to ICU for close monitoring and BP control. Pt was seen and examined today. Pt nonverbal and unable to provide history. OBJECTIVE: Vital Signs Period Temp Pulse Resp BP Sys/Manuel Pulse Ox Last 24 Hr 97.4 F-98.2 F 68-112 18-24 111-161/46-86 96-100 GENERAL: The patient is awake, alert in no acute distress. HEAD: Normal with no signs of trauma. EYES: PERRL, extraocular movements intact, sclera anicteric, conjunctiva clear. No ptosis. ENT: Ears normal, nares patent, oropharynx clear without exudates, moist mucous membranes. NECK: Trachea midline, full range of motion, supple. LUNGS: Breath sounds equal, clear to auscultation bilaterally, no wheezes, no crackles, no accessory muscle use. HEART: Regular rate and rhythm, S1, S2 without murmur, rub or gallop. ABDOMEN: Soft, nontender, nondistended, normoactive bowel sounds, no guarding, no rebound, no hepatosplenomegaly, no masses. EXTREMITIES: 2+ pulses, warm, well-perfused, no edema. NEUROLOGICAL: Cranial nerves II through XII grossly intact. increased motor tone to bilateral upper extremities, R>L. 1-2/5 strength to RLE and 1/5 strength to RUE. will withdraw to pain. PSYCH: nonverbal. will make eye contact and track. does not follow commands. SKIN: Warm, dry, normal turgor, no rashes or lesions noted Laboratory Results - last 24 hr 05/16/18 05/16/18 05/16/18 12:15 13:11 13:11 WBC 14.7 H RBC 4.17 Hgb 12.2 Hct 35.7 MCV 85.6 MCH 29.2 MCHC 34.1 RDW 14.2 Plt Count 307 MPV 9.6 Absolute Neuts (auto) 12.7 H Neutrophils % 86.8 H Lymphocytes % 7.7 L Monocytes % 5.1 Eosinophils % 0.1 Basophils % 0.3 Nucleated RBC % 0 PT with INR 12.80 INR 1.08 PTT (Actin FS) Sodium Potassium Chloride Carbon Dioxide Anion Gap BUN Creatinine Creat Clearance w eGFR POC Glucometer 119 Random Glucose Hemoglobin A1c % Calcium Total Bilirubin AST ALT Alkaline Phosphatase Creatine Kinase Troponin I Total Protein Albumin Triglycerides Cholesterol Total LDL Cholesterol HDL Cholesterol Vitamin B12 TSH Urine Color Urine Appearance Urine pH Ur Specific [place] Urine Protein Urine Glucose (UA) Urine Ketones Urine Blood Urine Nitrite Urine Bilirubin Urine Urobilinogen Ur Leukocyte Esterase Urine WBC (Auto) Urine RBC (Auto) Ur Epithelial Cells Urine Mucus 05/16/18 05/16/18 05/16/18 13:11 13:11 17:33 WBC RBC Hgb Hct MCV MCH MCHC RDW Plt Count MPV Absolute Neuts (auto) Neutrophils % Lymphocytes % Monocytes % Eosinophils % Basophils % Nucleated RBC % PT with INR INR PTT (Actin FS) Sodium 140 Potassium 3.6 Chloride 106 Carbon Dioxide 26 Anion Gap 8 BUN 21 H Creatinine 0.6 Creat Clearance w eGFR 95.95 POC Glucometer 157 Random Glucose 113 H Hemoglobin A1c % Calcium 9.0 Total Bilirubin 0.5 AST 12 L ALT 19 Alkaline Phosphatase 109 Creatine Kinase 99 Troponin I < 0.02 Total Protein 7.2 Albumin 3.5 Triglycerides Cholesterol Total LDL Cholesterol HDL Cholesterol Vitamin B12 TSH Urine Color Yellow Urine Appearance Slcloudy Urine pH 7.0 Ur Specific [place] 1.015 Urine Protein 2+ H Urine Glucose (UA) Negative Urine Ketones Negative Urine Blood 2+ H Urine Nitrite Negative Urine Bilirubin Negative Urine Urobilinogen Negative Ur Leukocyte Esterase Negative Urine WBC (Auto) 1 Urine RBC (Auto) 5 Ur Epithelial Cells Rare Urine Mucus Rare 05/16/18 05/16/18 05/17/18 17:41 21:25 05:26 WBC RBC Hgb Hct MCV MCH MCHC RDW Plt Count MPV Absolute Neuts (auto) Neutrophils % Lymphocytes % Monocytes % Eosinophils % Basophils % Nucleated RBC % PT with INR INR PTT (Actin FS) Sodium Potassium Chloride Carbon Dioxide Anion Gap BUN Creatinine Creat Clearance w eGFR POC Glucometer 131 83 Random Glucose Hemoglobin A1c % Calcium Total Bilirubin AST ALT Alkaline Phosphatase Creatine Kinase Troponin I < 0.02 Total Protein Albumin Triglycerides Cholesterol Total LDL Cholesterol HDL Cholesterol Vitamin B12 895 TSH Urine Color Urine Appearance Urine pH Ur Specific [place] Urine Protein Urine Glucose (UA) Urine Ketones Urine Blood Urine Nitrite Urine Bilirubin Urine Urobilinogen Ur Leukocyte Esterase Urine WBC (Auto) Urine RBC (Auto) Ur Epithelial Cells Urine Mucus 05/17/18 05/17/18 05/17/18 05:30 05:30 05:30 WBC 10.8 H RBC 3.84 Hgb 11.4 Hct 32.8 MCV 85.2 MCH 29.6 MCHC 34.7 RDW 14.2 Plt Count 276 MPV 9.5 Absolute Neuts (auto) 8.2 H Neutrophils % 75.9 Lymphocytes % 16.4 D Monocytes % 6.3 Eosinophils % 0.9 D Basophils % 0.5 Nucleated RBC % 0 PT with INR 12.70 INR 1.08 PTT (Actin FS) 29.5 Sodium Potassium Chloride Carbon Dioxide Anion Gap BUN Creatinine Creat Clearance w eGFR POC Glucometer Random Glucose Hemoglobin A1c % Calcium Total Bilirubin AST ALT Alkaline Phosphatase Creatine Kinase Troponin I < 0.02 Total Protein Albumin Triglycerides 97 Cholesterol 183 Total LDL Cholesterol 105 H HDL Cholesterol 70 H Vitamin B12 TSH 0.24 L Urine Color Urine Appearance Urine pH Ur Specific [place] Urine Protein Urine Glucose (UA) Urine Ketones Urine Blood Urine Nitrite Urine Bilirubin Urine Urobilinogen Ur Leukocyte Esterase Urine WBC (Auto) Urine RBC (Auto) Ur Epithelial Cells Urine Mucus 05/17/18 05:30 WBC RBC Hgb Hct MCV MCH MCHC RDW Plt Count MPV Absolute Neuts (auto) Neutrophils % Lymphocytes % Monocytes % Eosinophils % Basophils % Nucleated RBC % PT with INR INR PTT (Actin FS) Sodium Potassium Chloride Carbon Dioxide Anion Gap BUN Creatinine Creat Clearance w eGFR POC Glucometer Random Glucose Hemoglobin A1c % 5.2 Calcium Total Bilirubin AST ALT Alkaline Phosphatase Creatine Kinase Troponin I Total Protein Albumin Triglycerides Cholesterol Total LDL Cholesterol HDL Cholesterol Vitamin B12 TSH Urine Color Urine Appearance Urine pH Ur Specific [place] Urine Protein Urine Glucose (UA) Urine Ketones Urine Blood Urine Nitrite Urine Bilirubin Urine Urobilinogen Ur Leukocyte Esterase Urine WBC (Auto) Urine RBC (Auto) Ur Epithelial Cells Urine Mucus Active Medications Generic Name Dose Route Start Last Admin Trade Name Freq PRN Reason Stop Dose Admin Hydrochlorothiazide 25 mg 05/17/18 10:00 Hctz - PO DAILY MILLY Sodium Chloride 1,000 mls @ 50 mls/hr 05/16/18 22:30 05/16/18 22:30 Normal Saline - IV 05/17/18 22:25 50 mls/hr ASDIR MILLY Administration Levetiracetam 500 mg 05/16/18 22:00 05/16/18 21:18 Keppra Injection - IVPB 500 mg BID MILLY Administration Levothyroxine Sodium 75 mcg 05/17/18 07:00 05/17/18 06:28 Synthroid - PO Not Given DAILY@0700 MILLY Metoprolol Succinate 25 mg 05/17/18 10:00 Toprol Xl - PO DAILY MILLY Assessment /Plan: Pt is an 83 yo F with PMHx of hypothyroidism, HTN, previous CVA (RUE tremor residual) on ASA presenting with last known well at 5pm yesterday and now aphasia (expressive and possible receptive), and weakness of RUE and RLE noted since 9am. #Neuro: CT head-Hemorrhagic CVA to left frontal lobe with some midline shift Hx of Prior CVA (May 2017), RUE tremor as residual Hemorrhagic stroke, not a candidate for TPA Hold ASA Per neuro/neuro sx- no surgical intervention at this time Strict BP control <160/<90 CTA head: no dissection or aneurysm. dominant right vertebral artery. no high grade stenotic lesions. CT brain 05/17/18: 2.5x2.4x2.9 cm ICH with charlie hematoma edema with no expansion of hematoma. no herniation. compressive dilation of right lateral ventricle. Plan for repeat CT head 05/18/18 Cont Cardiac monitoring Keppra 500 mg IVPB BID Speech and Swallow ordered -PO meds with apple sauce Physical therapy ordered Tropx3 negative No hx of Parkinsons in past- pt now with rigidity >RUE Neurochecks #Cards: Unclear hx of arrythmia, pt on toprol No clear CAD hx prior HTN Cont PO meds with apple sauce -Metoprolol 25 mg PO daily -DC hydrochlorthiazide Goal <160/<90 per neuro and neurosurgery ECHO in am CTA neck On levothyroxine Lipid profile EKG #Respiratory Stable Monitor #Endocrine Hypothyroidism, unclear hx of arrythmias Levothyroxine 75 mcg PO daily HgbA1c- no hx of DM #FEN No IVF Monitor lytes NPO except for meds with apple sauce May escalate diet if she passes bedside swallow eval #Dispo Discussed with daughter's by the bedside, no HCP, unaware of patient's wishes ICU level care for cardiac monitoring and neurochecks Visit type - Emergency Visit Emergency Visit: Yes ED Registration Date: 05/16/18 Care time: The patient presented to the Emergency Department on the above date and was hospitalized for further evaluation of their emergent condition. - New Patient This patient is new to me today: Yes Date on this admission: 05/17/18 - Critical Care Critical Care patient: Yes Total Critical Care Time (in minutes): 35 Critical Care Statement: The care of this patient involved high complexity decision making to prevent further life threatening deterioration of the patient 's condition and/or to evaluate & treat vital organ system(s) failure or risk of failure. - Discharge Referral Referred to [facility] Med P.C.: No
--- NOTE | 2018-05-17 08:03 | PN ---
Progress Note (short form) - Note Progress Note: NEUROSURGERY Still with R hemiparesis PE: AF, VSS, no hypertensive spikes HEENT- NC/AT; Neck- supple; Cor- RR; Lungs- CTA B; Abd- benign; Ext- no sign of DVT A/A; not speaking much CN- EOMF, tongue midline; Motor- increased tone B UE/LE R > L, R LE 1-2/5 R UE 1/5, L side 4-, withdrawing to pain B; Sensation- grossly intact LT; cerebellar - difficult to assess Labs reviewed Head CT- mild-moderate cerebral atrophy; acute L anterior medial frontal 2. x 2.5 irregular shaped acute ICH with mild mass effect and edema; chronic R frontal periventricular and BG stroke; no midline shift or HCP; no SAH CTA- (prelim)- L medial frontal ICH noted; no obvious aneurysm or AVM Cerebrovascular disease with acute L med frontal ICH Keppra for sz prophylaxis x 1 week (loading dose then 500 mg bid) BP monitoring and control SBP <160; DBP < 90 Hold ASA Repeat head CT today to f/u ICH size and mass effect, some worsening expected before stabilizing, give initial size of ICH No neurosurgical intervention indicated D/w ICU team Speech/PT evaluation
[2018-05-17 09:04] LABS: ALBUMIN 3.1 g/dl (3.4-5.0); ALK PHOS 97 U/L (45-117); ANION GAP 6 MMOL/L (8-16); BILIRUBIN,TOTAL 0.6 mg/dL (0.2-1); BLOOD UREA NITROGEN 23 mg/dL (7-18); CALCIUM 8.6 mg/dL (8.5-10.1); CHLORIDE 110 mmol/L (98-107); CO2 26 mmol/L (21-32); CREATININE 0.7 mg/dL (0.55-1.3); GLUCOSE,RANDOM 88 mg/dL (74-106); MAGNESIUM 2.3 mg/dL (1.8-2.4); PHOSPHOROUS 3.9 mg/dL (2.5-4.9); POTASSIUM 3.7 mmol/L (3.5-5.1); SGOT/AST 12 U/L (15-37); SGPT/ALT 18 U/L (13-61); SODIUM 142 mmol/L (136-145); TOT PROT 6.4 g/dl (6.4-8.2)
[2018-05-17] MEDS ORDERED: PATIENT'S OWN MEDICATION (NON-FORMULARY) (Olmesartan/Hydrochlorothiazide [Benicar Hct 40-2 PO SCH (10:00)
[2018-05-17] MEDS ORDERED: VALSARTAN 160 MG TABLET (UD) PO SCH (10:00)
[2018-05-17] MEDS: levETIRAcetam 500 MG/5 ML INJECTION VIAL IVPB SCH ×2 (10:16→22:29)
[2018-05-17] MEDS: metoPROLOL SUCCINATE 25 MG TAB.SR.24H (FP) PO SCH ×2 (10:17→10:55)
[2018-05-17] MEDS: HYDROCHLOROTHIAZIDE 25 MG TABLET (FP) PO SCH ×2 (10:18→10:56)
--- NOTE | 2018-05-17 11:54 | PN ---
Teaching Attending Note Name of Resident: Clementina Laureano ATTENDING PHYSICIAN STATEMENT I saw and evaluated the patient. I reviewed the resident's note and discussed the case with the resident. I agree with the resident's findings and plan as documented. SUBJECTIVE: Pt seen and examined in the ICU. Remains aphasic with right sided weakness. OBJECTIVE: Vital Signs Period Temp Pulse Resp BP Sys/Manuel Pulse Ox Last 24 Hr 97.4 F-98.2 F 68-112 18-25 111-161/46-86 93-100 Intake & Output 05/14/18 05/15/18 05/16/18 05/17/18 23:59 23:59 23:59 23:59 Intake Total 550 500 Output Total 900 350 Balance -350 150 Weight 63 kg 63 kg Gen: NAD but aphasic Heart: RRR Lung: decreased breath sounds at the bases Abd: soft, nontender Ext: no edema CBC, BMP 05/17/18 05:30 05/17/18 05:30 Active Medications Atorvastatin Calcium (Lipitor -) 40 mg PO HS [facility] Sodium Chloride (Normal Saline -) 1,000 mls @ 50 mls/hr IV ASDIR [facility] Stop: 05/17/18 22:25 Last Admin: 05/16/18 22:30 Dose: 50 mls/hr Levetiracetam (Keppra Injection -) 500 mg IVPB BID [facility] Last Admin: 05/17/18 10:16 Dose: 500 mg Levothyroxine Sodium (Synthroid -) 75 mcg PO DAILY@0700 [facility] Last Admin: 05/17/18 10:17 Dose: 75 mcg Metoprolol Succinate (Toprol Xl -) 25 mg PO DAILY [facility] Last Admin: 05/17/18 10:55 Dose: Not Given ASSESSMENT AND PLAN: Acute Hemorrhagic Stroke h/o CVA HTN Hypothyroidism - neuro checks - repeat CT head in AM - empiric antiepileptics - aspiration precautions - keep BP <160/90 - swallow eval - physical therapy - DVT prophylaxis - continue ICU monitoring critical care time spent in reviewing chart, evaluating patient and formulating plan 35 min
--- NOTE | 2018-05-17 14:41 | CONSULT ---
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 Cardiovascular: Yes: HTN Pulmonary: Yes: COPD (Emphysema on home steroids) ...: No - Smoking History Smoking history: Never smoked Have you smoked in the past 12 months: No Aproximately how many cigarettes per day: 0 If you are a former smoker, when did you quit?: 1995 - Alcohol/Substance Use Hx Alcohol Use: No - Social History ADL: Independent History - Admission Reason For Visit: CVA,HTN,HYPOTHYROIDISM - Diagnostics CT Scan: Report Reviewed ( Hemorrhagic stroke in L frontal medial 3.0x 2.5 with some midline shift) - Hearing Hearing: Impaired Hearing Aide: No With Patient: No Speech Evaluation - Communication Primary Language: [place]
--- NOTE | 2018-05-17 14:42 | CONSULT ---
Admitting History and Physical - Primary Care Physician PCP: Leida Alcantar - Admission History of Present Illness: 83 year old female with PMH CVA with residual RUE tremor, HTN, hypothyroidism, on ASA presented to ED 05/16/18 for inability to speak and right sided weakness. Pt was found to have ICH (left frontal lobe) with midline shift. Acute Hemorrhagic Stroke h/o CVA HTN Hypothyroidism Selected Entries 05/17/18 05/17/18 05/17/18 02:00 06:00 10:50 Breakfast NPO Temperature 98.1 F 98.2 F Laboratory Tests 05/16/18 05/17/18 13:11 05:30 WBC 14.7 H 10.8 H Family reports pt was verbal premorbidly, sometimes confused people and events before admission. 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 x 2.5 irregular shaped acute ICH with mild mass effect and edema; chronic R frontal periventricular and BG stroke; no midline shift or HCP; no SAH) - General Mental Status: Awake and Alert (establishes/maintains eye contact, laughs), Able to Follow Commands (intermittent, 1 stage, apraxia) Attention: Intact Ability to Follow Directions: Poor (intermittent, 1 stage, apraxia) Head/Neck Control: Good - Hearing Hearing: Impaired Hearing Aide: No With Patient: No Speech Evaluation - Communication Primary Language: YAKUT Communication: Yes: Aphasia Oral Expression Ability: Yes: Moderate Impairment, Severe Impairment - Speech Production Apraxia: Yes Able to Make Needs Known: Yes: Severely Impaired (very occasional intiation of speech to say her name, social speech. Severe speech initiation deficits likely sec oral/verbal apraxia) Intelligibility: Yes: WNL - Speech Characteristics Voice Loudness: Normal Voice Pitch: Yes: Normal Voice Phonatory-based Quality: Yes: Normal Speech Clarity: < 100% Nasal Resonance: Normal Articulation: Yes: Precise - Language/Auditory Comprehension Observation: Able to respond to yes/no queries: Yes (inconsistent initiation of response), Comprehends Conversational Speech: Yes (simple) - Language/Verbal Expression Aphasia: Yes: Impaired Repetition, Apraxia Able to Respond to Simple Queries: Yes: Severely Impaired Able to Communicate Wants and Needs: Yes: Severely Impaired Functional Communication Status: Yes: Severely Impaired - Swallow Evaluation/Bedside Assessment Current Nutritional Intake: NPO Oral Secretions: Yes: WFL Dentition: Yes: Adequate Facial Symmetry at Rest: Symmetrical Facial Symmetry on Retraction: Symmetrical Against Resistance Opening: Normal Against Resistance Closing: Normal Lingual Speed of Movement: Normal Lingual Movement Strgth Against Opposition: Normal Lingual Movement Characteristics: Normal Velopharyngeal Movement: Normal Laryngeal Elevation: WFL Laryngeal Movement: Able to Palpate, Labored,delay initiation Bolus Size: Small Labial Seal: WFL Oral Prep Time: Increased A-P Transit: Impaired Timing of Swallow: Delayed Coughing/Throat Clear: No Change in Voice: No Recommendations - Speech Evaluation, Impression/Plan Impression: Severe Aphasia/Apraxia (oral/verbal/phonatory/limb) with impaired speech /motor initiation. Rare inconsistent initiation of word production (name , bye). No dysarthria. Delayed swallow but brisk. - Disposition Discharge to: Assisted Facility - Dysphagia Impressions/Plan Swallowing Skills: Impaired Dysphagia Impressions: Risk of Aspiration *Silent aspiration: cannot be R/O at bedside Dysphagia Treatment Plan: Small Bites, Chin Tuck/Down, Clear Pocket Food, 1/2 tsp. at a time, Elevate HOB during feed - Recommendations Diet Consistency: Dysphagia Pureed Medication Administration: Crushed with applesauce Liquids: [place] Thick Supplement: Magic Cup, Ensure Pudding, Other (2Cal HN)
--- NOTE | 2018-05-17 17:04 | ECHO ---
Name: PHILIP DE Exam:Adult Echocardiogram Study Date: 05/17/2018 11:40 AM Age: 83 yrs Height: 65 in Weight: 130 lb BSA: 1.6 m2 BP: 141/62 mmHg MMode/2D Measurements & Calculations IVSd: 0.70 cm Ao root diam: 2.6 cm LVIDd: 4.7 cm LA dimension: 2.7 cm LVIDs: 3.3 cm LVPWd: 0.72 cm EDV(Teich): 101.6 ml LVOT diam: 2.4 cm ESV(Teich): 43.0 ml TAPSE: 3.1 cm Doppler Measurements & Calculations MV E max miguel: 74.7 cm/sec Ao V2 max: 187.0 cm/sec MV A max miguel: 103.5 cm/sec Ao max P.0 mmHg MV E/A: 0.72 Ao V2 mean: 113.6 cm/sec MV dec time: 0.16 sec Ao mean P.1 mmHg Ao V2 VTI: 31.2 cm AMNA(I,D): 2.2 cm2 AMNA(V,D): 1.8 cm2 LV V1 max P.3 mmHg MR max miguel: 417.0 cm/sec LV V1 mean P.2 mmHg MR max P.6 mmHg LV V1 max: 75.8 cm/sec LV V1 mean: 50.4 cm/sec LV V1 VTI: 15.6 cm SV(LVOT): 67.8 ml TR max miguel: 195.4 cm/sec TR max P.9 mmHg Med Peak E' Miguel: 7.8 cm/sec Med E/e': 9.6 Lat Peak E' Miguel: 5.9 cm/sec Lat E/e': 12.6 Procedure A complete two-dimensional transthoracic echocardiogram was performed (2D, M-mode, Doppler and color flow Doppler). Left Ventricle The left ventricle is normal in size. Left ventricular systolic function is normal. Ejection Fraction = 55- 60%. No regional wall motion abnormalities noted. Right Ventricle The right ventricle is normal size. The right ventricular systolic function is normal. RV systolic TD I is 12 cm/s. Atria The left atrial size is normal. Right atrial size is normal. Mitral Valve There is mild mitral annular calcification. There is no mitral regurgitation noted. Tricuspid Valve The tricuspid valve is normal in structure and function. There is mild tricuspid regurgitation. Aortic Valve There is mild aortic sclerosis.;. No aortic regurgitation is present. Pulmonic Valve The pulmonic valve is not well visualized. Great Vessels The aortic root is normal size. Pericardium/Pleura There is no pericardial effusion. Interpretation Summary The left ventricle is normal in size. Left ventricular systolic function is normal. No regional wall motion abnormalities noted. Ejection Fraction = 55-60%. The right ventricular systolic function is normal. The left atrial size is normal. Right atrial size is normal. There is mild mitral annular calcification. There is mild tricuspid regurgitation. There is mild aortic sclerosis.; There is no pericardial effusion. Previous study is not available for comparison Jad Landon MD 05/17/2018 05:04 PM
--- NOTE | 2018-05-17 17:27 | PN ---
Progress Note (short form) - Note Progress Note: 83 year old female history of Hypothyroidism, HTN, stroke . Patient is on aspirin and statin. Patient has is not able to talk and found to have right upper and lower extremity weakness. Patient live with daughter. Patient has right upper extremity weakness and tremors as baseline.Patient was seen by neurosurgery and not a surgical candidate. Patient seems to be little better, opens eye and able to follow simple command, and right side moving less than left. repeat ct head unchanged . NEUROLOGICAL EXAMINATION Alert and track object, patient is able to follow simple command aphasic , and no spontaneous speech present . RIght sided moving less than left side pupils reactive, no face asymmetry to painful stimuli ct head reviewed there is large left forntal lobe hemorrhagic stroke no change since may 16 neurosurgery consult appreciated Assessment 83 year old female history of Hypothyroidism, htn, stroke came with aphasia and right sided hemiparesis , she has left frontal hemorrhagic stroke with midline shift, not a surgical candidate. Her neurological condition is stable. spoke to family about prognosis. Plan: hold aspirin - dvt prophylaxis, speech and pt - Continue to follow no need for steroid Thanking you so much Wilman Fair MD
[2018-05-17] MEDS ORDERED: metoPROLOL SUCCINATE 25 MG TAB.SR.24H (FP) PO ONE (18:33)
[2018-05-17] MEDS ORDERED: ATORVASTATIN CA 40 MG TABLET (FP) PO SCH (22:00)
--- NOTE | 2018-05-17 23:50 | PN ---
Progress Note, Physician - Current Medication List Current Medications: Active Medications Atorvastatin Calcium (Lipitor -) 40 mg PO HS [facility] Last Admin: 05/17/18 22:29 Dose: 40 mg Levetiracetam (Keppra Injection -) 500 mg IVPB BID [facility] Last Admin: 05/17/18 22:29 Dose: 500 mg Levothyroxine Sodium (Synthroid -) 75 mcg PO DAILY@0700 [facility] Last Admin: 05/17/18 10:17 Dose: 75 mcg Metoprolol Succinate (Toprol Xl -) 25 mg PO DAILY [facility] Last Admin: 05/17/18 10:55 Dose: Not Given - Objective Vital Signs: Vital Signs Temperature 98.0 F 05/17/18 14:00 Pulse Rate 88 05/17/18 22:00 Respiratory Rate 24 H 05/17/18 22:00 Blood Pressure 150/70 05/17/18 22:00 O2 Sat by Pulse Oximetry (%) 93 L 05/17/18 22:00 Labs: CBC, BMP 05/17/18 05:30 05/17/18 05:30 INR, PTT INR 1.08 (0.83-1.09) 05/17/18 05:30
[2018-05-18] MEDS: LEVOTHYROXINE NA 75 MCG TABLET (FP) PO SCH (06:15)
--- NOTE | 2018-05-18 07:53 | PN ---
Physical Exam: SUBJECTIVE: 83 year old female with PMH CVA with residual RUE tremor, HTN, hypothyroidism, on ASA presented to ED 05/16/18 for inability to speak and right sided weakness. Pt was found to have ICH (left frontal lobe) with midline shift. No surgical intervention was indicated per neuro/neurosurgery. Pt was admitted to ICU for close monitoring and BP control. Pt was seen and examined today. history limited by aphasia, pt was intermittently able to answer yes or no questions. Pt denied pain. OBJECTIVE: Vital Signs Period Temp Pulse Resp BP Sys/Manuel Pulse Ox Last 24 Hr 97.9 F-98.6 F 83-93 20-29 134-158/51-70 93-93 GENERAL: The patient is awake, alert in no acute distress. HEAD: Normal with no signs of trauma. EYES: PERRL, extraocular movements grossly intact, sclera anicteric, conjunctiva clear. No ptosis. ENT: Ears normal, nares patent, oropharynx clear without exudates, moist mucous membranes. NECK: Trachea midline, full range of motion, supple. LUNGS: Breath sounds equal, clear to auscultation bilaterally, no wheezes, no crackles, no accessory muscle use. HEART: Regular rate and rhythm, S1, S2 without murmur, rub or gallop. ABDOMEN: Soft, nontender, nondistended, normoactive bowel sounds, no guarding, no rebound, no hepatosplenomegaly, no masses. EXTREMITIES: 2+ pulses, warm, well-perfused, no edema. NEUROLOGICAL: Cranial nerves II through XII grossly intact. can say yes or no intermittently. increased tone bilateral UE/LE R > L, R LE 1-2/5 R UE 1/5, L side withdrawing to pain B. Sensation grossly intact. cerebellar difficult to assess. PSYCH: Normal mood, normal affect. SKIN: Warm, dry, normal turgor, no rashes or lesions noted Laboratory Results - last 24 hr 05/17/18 05/17/18 05/17/18 05:30 12:15 16:31 Sodium 142 Potassium 3.7 Chloride 110 H Carbon Dioxide 26 Anion Gap 6 L BUN 23 H Creatinine 0.7 Creat Clearance w eGFR 80.31 POC Glucometer 97 96 Random Glucose 88 Calcium 8.6 Phosphorus 3.9 Magnesium 2.3 Total Bilirubin 0.6 AST 12 L ALT 18 Alkaline Phosphatase 97 Troponin I < 0.02 Total Protein 6.4 Albumin 3.1 L Triglycerides 97 Cholesterol 183 Total LDL Cholesterol 105 H HDL Cholesterol 70 H TSH 0.24 L 05/17/18 23:04 Sodium Potassium Chloride Carbon Dioxide Anion Gap BUN Creatinine Creat Clearance w eGFR POC Glucometer 109 Random Glucose Calcium Phosphorus Magnesium Total Bilirubin AST ALT Alkaline Phosphatase Troponin I Total Protein Albumin Triglycerides Cholesterol Total LDL Cholesterol HDL Cholesterol TSH Active Medications Generic Name Dose Route Start Last Admin Trade Name Elma PRN Reason Stop Dose Admin Atorvastatin Calcium 40 mg 05/17/18 22:00 05/17/18 22:29 Lipitor - PO 40 mg HS MILLY Administration Levetiracetam 500 mg 05/16/18 22:00 05/17/18 22:29 Keppra Injection - IVPB 500 mg BID MILLY Administration Levothyroxine Sodium 75 mcg 05/17/18 07:00 05/18/18 06:15 Synthroid - PO 75 mcg DAILY@0700 MILLY Administration Metoprolol Succinate 25 mg 05/17/18 10:00 05/17/18 10:55 Toprol Xl - PO Not Given DAILY MILLY Assessment /Plan: Pt is an 83 yo F with PMHx of hypothyroidism, HTN, previous CVA (RUE tremor residual) on ASA presenting with last known well at 5pm yesterday and now aphasia (expressive and possible receptive), and weakness of RUE and RLE. #Neuro: CT head-Hemorrhagic CVA to left frontal lobe with some midline shift Hx of Prior CVA (May 2017), RUE tremor as residual Hemorrhagic stroke, not a candidate for TPA Hold ASA Per neuro/neuro sx- no surgical intervention at this time Strict BP control <160/<90 CTA head: no dissection or aneurysm. dominant right vertebral artery. no high grade stenotic lesions. CT brain 05/17/18: 2.5x2.4x2.9 cm ICH with charlie hematoma edema with no expansion of hematoma. no herniation. compressive dilation of right lateral ventricle. CT brain 05/18/18: no expansion of the hematoma mass effect frontal horn of the left lateral ventircle. CSF spaces unchanged from prior study. no evidence of herniation. stable acute hyperdense left frontal lobe hematoma with per- hematome edema. Cont Cardiac monitoring Keppra 500 mg IVPB BID Speech and Swallow: dysphagia puree, PO meds with apple sauce Physical therapy Tropx3 negative No hx of Parkinsons in past- pt now with rigidity >RUE Neurochecks #Cards: Unclear hx of arrythmia, pt on toprol No clear CAD hx prior HTN Cont PO meds with apple sauce -Hydrochlorothiazide 25 mg PO daily added 05/18/18 -Metoprolol 25 mg PO daily Goal <160/<90 per neuro and neurosurgery ECHO 05/17/18: EF 55-60%. mild mitral annular calcification. mild tricuspid regurgitation. mild aortic sclerosis. On levothyroxine #Respiratory Stable Monitor #Endocrine Hypothyroidism, unclear hx of arrythmias Levothyroxine 75 mcg PO daily HgbA1c- 5.2 #FEN No IVF Monitor lytes Dysphagia puree, applesauce with PO meds (speech/swallow 05/17/18) #Dispo Discussed with daughter's by the bedside, no HCP, unaware of patient's wishes Tele Visit type - Emergency Visit Emergency Visit: Yes ED Registration Date: 05/16/18 Care time: The patient presented to the Emergency Department on the above date and was hospitalized for further evaluation of their emergent condition. - New Patient This patient is new to me today: No - Critical Care Critical Care patient: Yes Total Critical Care Time (in minutes): 35 Critical Care Statement: The care of this patient involved high complexity decision making to prevent further life threatening deterioration of the patient 's condition and/or to evaluate & treat vital organ system(s) failure or risk of failure. - Discharge Referral Referred to [facility] No
[2018-05-18 07:55] LABS: BASO % 0.6 % (0-2.0); EOS % 0.6 % (0-4.5); HEMATOCRIT 38.7 % (32.4-45.2); HEMOGLOBIN 13.4 GM/dL (10.7-15.3); LYMPH % 12.3 % (8-40); MCH 29.9 pg (25.7-33.7); MCHC 34.6 g/dl (32.0-36.0); MEAN CELL VOLUME 86.3 fl (80-96); MEAN PLT VOLUME 9.8 fl (7.5-11.1); MONO % 4.6 % (3.8-10.2); NEUT % 81.9 % (42.8-82.8); PLATELET COUNT 304 K/MM3 (134-434); RBC 4.48 M/mm3 (3.60-5.2); RDW 14.2 % (11.6-15.6)
[2018-05-18 08:09] LABS: ALBUMIN 3.5 g/dl (3.4-5.0); ALK PHOS 108 U/L (45-117); ANION GAP 8 MMOL/L (8-16); BILIRUBIN,TOTAL 0.6 mg/dL (0.2-1); BLOOD UREA NITROGEN 24 mg/dL (7-18); CALCIUM 8.9 mg/dL (8.5-10.1); CHLORIDE 107 mmol/L (98-107); CO2 25 mmol/L (21-32); CREATININE 0.7 mg/dL (0.55-1.3); GLUCOSE,RANDOM 95 mg/dL (74-106); POTASSIUM 3.6 mmol/L (3.5-5.1); SGOT/AST 14 U/L (15-37); SGPT/ALT 19 U/L (13-61); SODIUM 140 mmol/L (136-145); TOT PROT 7.4 g/dl (6.4-8.2)
--- NOTE | 2018-05-18 08:09 | PN ---
Progress Note (short form) - Note Progress Note: NEUROSURGERY Still with R hemiparesis PE: AF, VSS, no hypertensive spikes HEENT- NC/AT; Neck- supple; Cor- RR; Lungs- CTA B; Abd- benign; Ext- no sign of DVT A/A; not speaking much, smiling CN- EOMF, tongue midline; Motor- increased tone B UE/LE R > L, R LE 1-2/5 R UE 1/5, L side 4-, withdrawing to pain B; Sensation- grossly intact LT; cerebellar - difficult to assess Labs reviewed Head CT- mild-moderate cerebral atrophy; acute L anterior medial frontal 2 x 2.5 irregular shaped acute ICH with mild mass effect and edema; chronic R frontal periventricular and BG stroke; no midline shift or HCP; no SAH F/u head CT- ICH with mild edema; minimally increased CTA- L medial frontal ICH noted; no obvious aneurysm or AVM Cerebrovascular disease with acute L med frontal ICH Keppra for sz prophylaxis x 1 week BP monitoring and control SBP <160; DBP < 90 Hold ASA Repeat head CT today to f/u ICH size and mass effect No neurosurgical intervention indicated D/w ICU team Speech/PT evaluation OOB with assistance Rehab needed post-discharge
[2018-05-18] MEDS ORDERED: POTASSIUM CHLORIDE ORAL LIQUID 20 MEQ/15 ML PO ONE (08:50)
[2018-05-18] MEDS: metoPROLOL SUCCINATE 25 MG TAB.SR.24H (FP) PO SCH (09:13)
[2018-05-18] MEDS: levETIRAcetam 500 MG/5 ML INJECTION VIAL IVPB SCH ×2 (09:14→21:29)
[2018-05-18] MEDS ORDERED: HYDROCHLOROTHIAZIDE 25 MG TABLET (FP) PO SCH (10:39)
--- NOTE | 2018-05-18 11:53 | PN ---
Progress Note, RADIOLOGIC TECHNICIAN - Note Progress Note: Selected Entries 05/17/18 05/17/18 05/17/18 02:00 06:00 10:00 Breakfast Diet Tolerated Temperature 98.1 F 98.2 F 97.9 F 05/17/18 05/18/18 05/18/18 14:00 02:00 06:00 Breakfast Diet Tolerated Temperature 98.0 F 98.4 F 98.6 F 05/18/18 05/18/18 10:00 10:57 Breakfast 75% Diet Tolerated Fair Temperature 99 F Laboratory Tests 05/16/18 05/17/18 05/18/18 13:11 05:30 07:15 WBC 14.7 H 10.8 H 13.0 H Dys puree/nectar initiated. Making some physical recovery in Right hand, and PT. Tolerating diet.No congestion noted/reported. Slow initiation but brisk IMP:Severe Aphasia/Apraxia (oral/verbal/phonatory/limb) with impaired speech / motor initiation. Rare inconsistent initiation of word production (name, bye). No dysarthria. Delayed swallow but brisk. Consider:Acute rehab/[facility]
--- NOTE | 2018-05-18 12:30 | PN ---
Teaching Attending Note Name of Resident: Clementina Laureano ATTENDING PHYSICIAN STATEMENT I saw and evaluated the patient. I reviewed the resident's note and discussed the case with the resident. I agree with the resident's findings and plan as documented. SUBJECTIVE: Pt seen and examined in the ICU. Still with right sided weakness but some spontaneous movements. Remains aphasic. Repeat CT head largely unchanged. OBJECTIVE: Vital Signs Period Temp Pulse Resp BP Sys/Manuel Pulse Ox Last 24 Hr 98.0 F-99 F 84-93 20-29 134-158/51-70 93-98 Intake & Output 05/15/18 05/16/18 05/17/18 05/18/18 23:59 23:59 23:59 23:59 Intake Total 550 1240 700 Output Total 270 037 4658 Balance -350 590 -400 Weight 63 kg 63 kg 63 kg Gen: NAD at rest, aphasic Heart: RRR Lung: decreased breath sounds at the bases Abd: soft, nontender Ext: no edema CBC, BMP 05/18/18 07:15 05/18/18 07:15 Active Medications Atorvastatin Calcium (Lipitor -) 40 mg PO HS [facility] Last Admin: 05/17/18 22:29 Dose: 40 mg Hydrochlorothiazide (Hctz -) 25 mg PO DAILY [facility] Last Admin: 05/18/18 11:03 Dose: 25 mg Levetiracetam (Keppra Injection -) 500 mg IVPB BID [facility] Last Admin: 05/18/18 09:14 Dose: 500 mg Levothyroxine Sodium (Synthroid -) 75 mcg PO DAILY@0700 [facility] Last Admin: 05/18/18 06:15 Dose: 75 mcg Metoprolol Succinate (Toprol Xl -) 25 mg PO DAILY [facility] Last Admin: 05/18/18 09:13 Dose: 25 mg ASSESSMENT AND PLAN: Acute Hemorrhagic Stroke h/o CVA HTN Hypothyroidism - neuro checks - empiric antiepileptics - aspiration precautions - BP control - PO as tolerated - aspiration precautions - physical therapy - DVT prophylaxis - can monitor on telemetry
[2018-05-18 14:45] VITALS: BMI 22.9
--- NOTE | 2018-05-18 21:02 | PN ---
Progress Note, Physician History of Present Illness: No new changes - Current Medication List Current Medications: Active Medications Atorvastatin Calcium (Lipitor -) 40 mg PO HS MILLY Hydrochlorothiazide (Hctz -) 25 mg PO DAILY ONE Stop: 05/18/18 20:53 Levetiracetam (Keppra Injection -) 500 mg IVPB BID MILLY Levothyroxine Sodium (Synthroid -) 75 mcg PO DAILY@0700 MILLY Metoprolol Succinate (Toprol Xl -) 25 mg PO DAILY MILLY - Objective Vital Signs: Vital Signs Temperature 99.1 F 05/18/18 18:00 Pulse Rate 90 05/18/18 20:00 Respiratory Rate 24 H 05/18/18 20:00 Blood Pressure 148/70 05/18/18 20:00 O2 Sat by Pulse Oximetry (%) 98 05/18/18 09:00 Neck: Yes: WNL, Supple Cardiovascular: Yes: WNL, Regular Rate and Rhythm Respiratory: Yes: WNL, Regular, CTA Bilaterally Gastrointestinal: Yes: WNL, Normal Bowel Sounds, Soft Edema: No Labs: CBC, BMP 05/18/18 07:15 05/18/18 07:15 INR, PTT INR 1.08 (0.83-1.09) 05/17/18 05:30 Problem List - Problems (1) Hemorrhagic stroke Assessment/Plan: Cont neuro checks PT eval Monitor BP Code(s): I61.9 - NONTRAUMATIC INTRACEREBRAL HEMORRHAGE, UNSPECIFIED (2) HTN (hypertension) Assessment/Plan: Monitor BP Cont Hctz/metoprolol Code(s): I10 - ESSENTIAL (PRIMARY) HYPERTENSION (3) HLD (hyperlipidemia) Assessment/Plan: Cont lipitor Code(s): E78.5 - HYPERLIPIDEMIA, UNSPECIFIED (4) Leukocytosis Assessment/Plan: Will get ID consult Pt is afebrile but WBC elevated Urine culture is negative Code(s): D72.829 - ELEVATED WHITE BLOOD CELL COUNT, UNSPECIFIED
[2018-05-18] MEDS: ATORVASTATIN CA 40 MG TABLET (FP) PO SCH (21:29)
[2018-05-19] MEDS: LEVOTHYROXINE NA 75 MCG TABLET (FP) PO SCH (06:02)
[2018-05-19 07:59] LABS: BASO % 0.4 % (0-2.0); EOS % 0.1 % (0-4.5); HEMATOCRIT 37.3 % (32.4-45.2); HEMOGLOBIN 12.8 GM/dL (10.7-15.3); LYMPH % 14.1 % (8-40); MCH 29.2 pg (25.7-33.7); MCHC 34.2 g/dl (32.0-36.0); MEAN CELL VOLUME 85.4 fl (80-96); MEAN PLT VOLUME 9.6 fl (7.5-11.1); MONO % 3.4 % (3.8-10.2); PLATELET COUNT 319 K/MM3 (134-434); RBC 4.37 M/mm3 (3.60-5.2); RDW 14.2 % (11.6-15.6); WHITE BLOOD COUNT 13.3 K/mm3 (4.0-10.0)
[2018-05-19 08:24] LABS: ALBUMIN 3.4 g/dl (3.4-5.0); ALK PHOS 106 U/L (45-117); ANION GAP 6 MMOL/L (8-16); BILIRUBIN,TOTAL 0.6 mg/dL (0.2-1); BLOOD UREA NITROGEN 27 mg/dL (7-18); CALCIUM 9.1 mg/dL (8.5-10.1); CHLORIDE 105 mmol/L (98-107); CO2 27 mmol/L (21-32); CREATININE 0.8 mg/dL (0.55-1.3); GLUCOSE,RANDOM 118 mg/dL (74-106); SGOT/AST 15 U/L (15-37); SGPT/ALT 20 U/L (13-61); SODIUM 138 mmol/L (136-145); TOT PROT 7.2 g/dl (6.4-8.2)
--- NOTE | 2018-05-19 09:01 | PN ---
Progress Note (short form) - Note Progress Note: NEUROSURGERY In telemetry Still with R hemiparesis PE: AF, VSS, no hypertensive spikes HEENT- NC/AT; Neck- supple; Cor- RR; Lungs- CTA B; Abd- benign; Ext- no sign of DVT A/A; not speaking much, smiling CN- EOMF, tongue midline; Motor- increased tone B UE/LE R > L, R LE 0-1/5 R UE 1/5, L side 4-, withdrawing to pain B; Sensation- grossly intact LT; cerebellar - difficult to assess Head CT- mild-moderate cerebral atrophy; acute L anterior medial frontal 2 x 2.5 irregular shaped acute ICH with mild mass effect and edema; chronic R frontal periventricular and BG stroke; no midline shift or HCP; no SAH F/u head CT- ICH with mild edema; minimally increased CTA- L medial frontal ICH noted; no obvious aneurysm or AVM Cerebrovascular disease with acute L med frontal ICH Keppra for sz prophylaxis x 1 week total BP monitoring and control SBP <160; DBP < 90 Hold ASA x 1 week total at least No neurosurgical intervention indicated Speech evaluation noted OOB with assistance/PT Rehab post-discharge
[2018-05-19] MEDS: HYDROCHLOROTHIAZIDE 25 MG TABLET (FP) PO SCH (11:32)
[2018-05-19] MEDS: metoPROLOL SUCCINATE 25 MG TAB.SR.24H (FP) PO SCH (11:32)
[2018-05-19] MEDS: levETIRAcetam 500 MG/5 ML INJECTION VIAL IVPB SCH ×2 (11:32→21:41)
--- NOTE | 2018-05-19 11:43 | PN ---
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 Unfortunately, little gains in speech initiation sec Aphasia/Apraxia. Seems to understand more than she demonstrates. Closes eyes upon command, protrudes tongue intermittently . Rare verbal responses eg "Celaya " (oral-verbal Apraxia). Audible reflexive laugh but no volitional phonation ( Phonatory Apraxia). Rare y/n head nod. Pt will benefit from intensive speech therapy upon d/c. Pt was functional premorbidly. Suggest- Rehab placement
--- NOTE | 2018-05-19 12:34 | PN ---
Progress Note (short form) - Note Progress Note: 83 year old female history of Hypothyroidism, HTN, stroke . Patient is on aspirin and statin. Patient has is not able to talk and found to have right upper and lower extremity weakness. Patient live with daughter. Patient has right upper extremity weakness and tremors as baseline.Patient was seen by neurosurgery and not a surgical candidate. Patient seems to be little better, opens eye and able to follow simple command, and right side moving less than left. repeat ct head unchanged . patient was seen yesterday and she is doing well and her ct head unchanged. patient is not a surgical candidate NEUROLOGICAL EXAMINATION Alert and track object, patient is able to follow simple command aphasic , and no spontaneous speech present . RIght sided moving less than left side pupils reactive, no face asymmetry to painful stimuli ct head reviewed there is large left forntal lobe hemorrhagic stroke neurosurgery consult appreciated Assessment 83 year old female history of Hypothyroidism, htn, stroke came with aphasia and right sided hemiparesis , she has left frontal hemorrhagic stroke with midline shift, not a surgical candidate. Her neurological condition is stable. spoke to family about prognosis yesterday and pateint is stable Plan: hold aspirin - dvt prophylaxis, speech and pt - Continue to follow Thanking you so much Wilman Fair MD
--- NOTE | 2018-05-19 15:02 | CON.ID ---
Consult Consult Specialty:: infectious diseases Referred by:: Reason for Consultation:: r/o uti,leukocytosis - History of Present Illness Chief Complaint: r sided weakness,aphasia History of Present Illness: 83 year old female history of Hypothyroidism, HTN, stroke . Patient is on aspirin and statin. Patient has is not able to talk and found to have right upper and lower extremity weakness. Patient live with daughter. Patient has right upper extremity weakness and tremors as baseline.Patient was seen by neurosurgery and not a surgical candidate. Patient bp was 161/65. Patient was able to talk at home and not able to talk here. Patient is in icu and i spent 35 minute doing critical care. She was able to eat in morning. 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 Cardio/Vascular: Yes: HTN Pulmonary: Yes: COPD (Emphysema on home steroids) ...: No - Alcohol/Substance Use Hx Alcohol Use: No - Smoking History Smoking history: Never smoked Have you smoked in the past 12 months: No Aproximately how many cigarettes per day: 0 If you are a former smoker, when did you quit?: 1995 - Social History Usual Living Arrangement: With Child ADL: Independent Home Medications - Allergies Allergies/Adverse Reactions: Allergies Allergy/AdvReac Type Severity Reaction Status Date / Time No Known Allergies Allergy Verified 06/27/18 17:42 - Home Medications Home Medications: Ambulatory Orders Acetaminophen [Tylenol] 650 mg PO Q4H PRN 06/27/18 Aspirin [ASA -] 81 mg PO DAILY 06/27/18 Atorvastatin Ca [Lipitor] 20 mg PO HS 06/27/18 Docusate Liquid [Colace Liquid -] 30 mg PO DAILY 06/27/18 Gabapentin [Neurontin -] 100 mg PO Q8H 06/27/18 Lactulose (Oral Use) [Cephulac -] 20 gm PO Q2H 06/27/18 Levothyroxine Sodium [Levo-T] 88 mcg PO DAILY 06/27/18 Mag Hydrox/Al Hydrox/Simeth [Mylanta Oral Suspension -] 30 ml PO Q4H PRN Metoprolol Tartrate [Lopressor -] 25 mg PO BID 06/27/18 Nitrofurantoin Macrocrystal [Macrodantin -] 50 mg PO QID 06/27/18 Phenazopyridine HCl [Pyridium -] 100 mg PO TID 06/27/18 Polyethylene Glycol 3350 [Glycolax] 17 gm PO DAILY 06/27/18 Quetiapine Fumarate [Seroquel -] 12.5 mg PO Q6H 06/27/18 RX: Lisinopril 5 mg PO DAILY 06/27/18 Sennosides [Senna] 2 tab PO HS 06/27/18 Tamsulosin HCl [Flomax] 0.4 mg PO DAILY 06/27/18 traZODone HCL [Trazodone HCl] 50 mg PO HS 06/27/18 Review of Systems Unable to obtain ROS, reason: unable to obtain Physical Exam Vital Signs: Vital Signs Temperature 97.1 F L 05/19/18 09:04 Pulse Rate 87 05/19/18 09:04 Respiratory Rate 20 05/19/18 09:04 Blood Pressure 134/62 05/19/18 09:04 O2 Sat by Pulse Oximetry (%) 98 05/19/18 00:00 Constitutional: Yes: Calm Neck: Yes: Supple, Trachea Midline Cardiovascular: Yes: Regular Rate and Rhythm Respiratory: Yes: Regular, CTA Bilaterally Gastrointestinal: Yes: Normal Bowel Sounds Musculoskeletal: Yes: Other Neurological: Yes: Other (stroke,aphasia) Labs: CBC, BMP 05/19/18 07:20 05/19/18 07:20 Imaging - Results Chest X-ray: Report Reviewed, Image Reviewed Cat Scan: Report Reviewed, Image Reviewed Assessment/Plan Problem List - Problems (1) Hemorrhagic stroke Code(s): I61.9 - NONTRAUMATIC INTRACEREBRAL HEMORRHAGE, UNSPECIFIED (2) HTN (hypertension) Code(s): I10 - ESSENTIAL (PRIMARY) HYPERTENSION (3) HLD (hyperlipidemia) Code(s): E78.5 - HYPERLIPIDEMIA, UNSPECIFIED (4) Leukocytosis Code(s): D72.829 - ELEVATED WHITE BLOOD CELL COUNT, UNSPECIFIED plan urine cx noted will not start abx monitor wbc rest as per the team
[2018-05-19] MEDS: ATORVASTATIN CA 40 MG TABLET (FP) PO SCH (21:41)
--- NOTE | 2018-05-19 22:31 | PN ---
Progress Note, Physician History of Present Illness: No new changes - Current Medication List Current Medications: Active Medications Atorvastatin Calcium (Lipitor -) 40 mg PO HS [facility] Last Admin: 05/19/18 21:41 Dose: 40 mg Hydrochlorothiazide (Hctz -) 25 mg PO DAILY [facility] Last Admin: 05/19/18 11:32 Dose: 25 mg Levetiracetam (Keppra Injection -) 500 mg IVPB BID [facility] Last Admin: 05/19/18 21:41 Dose: 500 mg Levothyroxine Sodium (Synthroid -) 75 mcg PO DAILY@0700 [facility] Last Admin: 05/19/18 06:02 Dose: 75 mcg Metoprolol Succinate (Toprol Xl -) 25 mg PO DAILY [facility] Last Admin: 05/19/18 11:32 Dose: 25 mg - Objective Vital Signs: Vital Signs Temperature 97.8 F 05/19/18 22:00 Pulse Rate 94 H 05/19/18 22:00 Respiratory Rate 18 05/19/18 22:00 Blood Pressure 146/66 05/19/18 22:00 O2 Sat by Pulse Oximetry (%) 96 05/19/18 21:00 Neck: Yes: WNL, Supple Cardiovascular: Yes: WNL, Regular Rate and Rhythm Respiratory: Yes: WNL, Regular, CTA Bilaterally Gastrointestinal: Yes: WNL, Normal Bowel Sounds, Soft Edema: No Labs: CBC, BMP 05/19/18 07:20 05/19/18 07:20 INR, PTT INR 1.08 (0.83-1.09) 05/17/18 05:30 Problem List - Problems (1) Hemorrhagic stroke Assessment/Plan: DC planning to rehab in am Code(s): I61.9 - NONTRAUMATIC INTRACEREBRAL HEMORRHAGE, UNSPECIFIED (2) HTN (hypertension) Assessment/Plan: Monitor BP Cont Hctz/metoprolol Code(s): I10 - ESSENTIAL (PRIMARY) HYPERTENSION (3) HLD (hyperlipidemia) Assessment/Plan: Cont lipitor Code(s): E78.5 - HYPERLIPIDEMIA, UNSPECIFIED (4) Leukocytosis Assessment/Plan: Will get ID consult Pt is afebrile but WBC elevated Urine culture is negative Code(s): D72.829 - ELEVATED WHITE BLOOD CELL COUNT, UNSPECIFIED
[2018-05-20] MEDS: LEVOTHYROXINE NA 75 MCG TABLET (FP) PO SCH (06:02)
[2018-05-20 09:49] VITALS: BP 146/61; PULSE 74; TEMP 98.5
--- NOTE | 2018-05-20 10:32 | DS ---
Physical Examination Vital Signs: Vital Signs Temperature 98.5 F 05/20/18 09:00 Pulse Rate 74 05/20/18 09:00 Respiratory Rate 18 05/20/18 09:00 Blood Pressure 146/61 05/20/18 09:00 O2 Sat by Pulse Oximetry (%) 96 05/19/18 21:00 Cardiovascular: Yes: WNL, Regular Rate and Rhythm Respiratory: Yes: WNL, Regular, CTA Bilaterally Gastrointestinal: Yes: WNL, Normal Bowel Sounds, Soft Neurological: Yes: Other (Awake and following commands) ...Motor Strength: RUE, RLE (RT sided weakness) Labs: CBC, BMP 05/19/18 07:20 05/19/18 07:20 Discharge Summary Reason For Visit: CVA,HTN,HYPOTHYROIDISM Current Active Problems HLD (hyperlipidemia) (Acute) HTN (hypertension) (Acute) Hemorrhagic stroke (Acute) Leukocytosis (Acute) Hypothyroidism Hospital Course: Pt is an 83 yo F with PMHx of hypothyroidism, HTN, previous CVA (RUE tremor residual) on ASA presented to the ER w/ aphasia (expressive and possible receptive), and weakness of RUE and RLE. Pt was admitted to the ICU and CT scan head showed left frontal hemorrhagic stroke with midline shift. Pt was evaluated by neurosurgeon who found pt not to be a surgical candidate. Her neurological condition is stable and ASA was stopped. Pt was evaluated by neuro and speech pathology. Condition: Good - Instructions Diet, Activity, Other Instructions: 2 gram sodium diet Disposition: LONGTERM FACILITY - Home Medications Comprehensive Discharge Medication List: Ambulatory Orders Levothyroxine [Synthroid -] 75 mcg PO DAILY 06/12/15 Metoprolol Succinate [Toprol XL -] 25 mg PO DAILY 06/12/15 Atorvastatin Ca [Lipitor] 40 mg PO HS tablet 05/20/18 Atorvastatin Ca [Lipitor] 40 mg PO HS tablet 05/20/18 Hydrochlorothiazide [Hctz -] 25 mg PO DAILY tablet 05/20/18 levETIRAcetam INJECTION [Keppra Injection -] 500 mg IVPB BID ml 05/20/18 levETIRAcetam INJECTION [Keppra Injection -] 500 mg IVPB BID ml 05/20/18
[2018-05-20] MEDS: HYDROCHLOROTHIAZIDE 25 MG TABLET (FP) PO SCH (10:39)
[2018-05-20] MEDS: metoPROLOL SUCCINATE 25 MG TAB.SR.24H (FP) PO SCH (10:39)
[2018-05-20] MEDS: levETIRAcetam 500 MG/5 ML INJECTION VIAL IVPB SCH (10:39)
--- NOTE | 2018-05-20 11:59 | PN ---
Progress Note (short form) - Note Progress Note: 83 year old female history of Hypothyroidism, HTN, stroke . Patient is on aspirin and statin. Patient has is not able to talk and found to have right upper and lower extremity weakness. Patient live with daughter. Patient has right upper extremity weakness and tremors as baseline.Patient was seen by neurosurgery and not a surgical candidate. Her c NEUROLOGICAL EXAMINATION Alert and track object, patient is able to follow simple command aphasic , and no spontaneous speech present . RIght sided moving less than left side pupils reactive, no face asymmetry to painful stimuli ct head reviewed there is large left forntal lobe hemorrhagic stroke Assessment 83 year old female history of Hypothyroidism, htn, stroke came with aphasia and right sided hemiparesis , she has left frontal hemorrhagic stroke with midline shift, not a surgical candidate. Her neurological condition is stable. Patient is going to rehab, and aspirin can be resumed 3-4 days later continue supportive care Thanking you so much Wilman Fair MD
== END 2018-05-20 11:53 | DRG 64 ==
LOC: JER 11:41 → JERBED 13:13 → JICU 17:03 → J4W 05-19 00:10
PROVIDERS: ADMIT Internal Medicine; ATTEND Internal Medicine
DX: I61.9 Nontraumatic intracerebral hemorrhage, unspecified (principal); G93.6 Cerebral edema; G81.91 Hemiplegia, unspecified affecting right dominant side; R29.717 NIHSS score 17; J44.9 Chronic obstructive pulmonary disease, unspecified; I10 Essential (primary) hypertension; E03.9 Hypothyroidism, unspecified; I69.220 Aphasia following other nontraumatic intracranial hemorrhage; D72.829 Elevated white blood cell count, unspecified; E78.5 Hyperlipidemia, unspecified
CPT/HCPCS: 36415; 70450-TC; 70496-TC; 70498-TC; 71045-TC-FY; 80053; 80061; 81003; 81015; 82550; 82607; 82962; 83036; 83721; 83735; 84100; 84443; 84484; 85025; 85610; 85730; 87086; 93005; 93010; 93306-TC; 97116-GP; 97162-GP; 99284-25; J7030

== ENCOUNTER 2018-06-27 17:38 | Inpatient (IN) | payer OTHER, MEDICARE ==
[2018-06-27 18:16] LABS: VENOUS PC02 44.9 mmHg (41-51); VENOUS PH 7.37 (7.31-7.41)
[2018-06-27 18:17] LABS: BASO % 0.3 % (0-2.0); EOS % 0.1 % (0-4.5); HEMATOCRIT 36.3 % (32.4-45.2); HEMOGLOBIN 12.2 GM/dL (10.7-15.3); LYMPH % 3.5 % (8-40); MCH 28.7 pg (25.7-33.7); MCHC 33.5 g/dl (32.0-36.0); MEAN CELL VOLUME 85.6 fl (80-96); MEAN PLT VOLUME 10.1 fl (7.5-11.1); MONO % 2.4 % (3.8-10.2); NEUT % 93.7 % (42.8-82.8); PLATELET COUNT 299 K/MM3 (134-434); RBC 4.24 M/mm3 (3.60-5.2); RDW 14.7 % (11.6-15.6); WHITE BLOOD COUNT 19.6 K/mm3 (4.0-10.0)
[2018-06-27] MEDS ORDERED: RAPID SEQUENCE INTUBATION KIT NR ONE (18:32)
[2018-06-27 18:44] LABS: INR 1.1 (0.83-1.09)
[2018-06-27 18:52] LABS: ALBUMIN 3.2 g/dl (3.4-5.0); ALK PHOS 101 U/L (45-117); ANION GAP 9 MMOL/L (8-16); BILIRUBIN,TOTAL 0.5 mg/dL (0.2-1); BLOOD UREA NITROGEN 17 mg/dL (7-18); CHLORIDE 104 mmol/L (98-107); CO2 27 mmol/L (21-32); CREATININE 0.5 mg/dL (0.55-1.3); GLUCOSE,RANDOM 173 mg/dL (74-106); POTASSIUM 3.2 mmol/L (3.5-5.1); SGOT/AST 18 U/L (15-37); SGPT/ALT 17 U/L (13-61); SODIUM 140 mmol/L (136-145); TOT PROT 6.7 g/dl (6.4-8.2)
[2018-06-27] MEDS ORDERED: SUCCINYLCHOLINE CHLORIDE 200 MG/10 ML VIAL IVPUSH ONE (18:54)
[2018-06-27] MEDS ORDERED: ETOMIDATE 40 MG/20 ML VIAL IVPUSH ONE (18:54)
--- NOTE | 2018-06-27 19:14 | PDOC ---
History of Present Illness - General Chief Complaint: Altered Mental Status Stated Complaint: POSSIBLE CVA Time Seen by Provider: 06/27/18 17:55 - History of Present Illness Initial Comments: 06/27/18 18:57 83 yo F with h/o HTN, hypothyroidism, hemorrhagic stroke, BIBEMS unresponsive. Patient discovered by family (now at bedside) this AM, unresponsive to verbal, tactile, painful stimuli at approximately 319 PM, with subsequent whole body convulsions lasting for seconds x 2. Last known well was yesterday (06/26/18) whereby patient was A&Ox3, verbal with patient family, and able to follow commands, up with assistance. Patient vomited NBNB two time in long term per family. PMHx: as noted above ROS: as noted Allergies: NKDA PMD: Cecilio Noel Full code/intubation/resuscitation tPA Exclusion checklist 3-4.5h - Time Elapsed Date last known well: 06/26/18 Time last known well: 18:15 Elaspsed time: 1 Day(s) and 7 Hour(s) and 31 Minutes - Thrombolytic Therapy Candidate Is patient eligible for thrombolytic therapy: No - Exclusion Criteria 3-4.5 hr SBP greater than 185 or DBP greater than 110mmHg despite tx: No Recent IC/spinal surgery,head trauma or stroke<3mos.: Yes Hx IC hemorrhage, IC neoplasm, AV malformation or aneurysm: Yes Active internal bleeding: Yes Blding diathesis(low plt ct, inc PTT,INR>1.7 or use of NOAC): No Symptoms suggest subarachnoid hemorrhage: Yes CT demonstrates multilobar infarct(>1/3 cerebral hemiphere): No Arterial puncture at noncompressible site in previous 7 days: No Blood glucose concentration less than 50mg/dL (2.7mmol/L): No - Relative Exclusion Criteria 3-4.5 hr Life expectancy <1 yr or severe co-morbid illness: Yes : No Patient/family refused: No Stroke severity too mild: No Recent acute SC (w/in previous 3 months): No Seizure at onset with postictal residual neuro impairments: No Major surgery or serious trauma w/in previous 14 days: No Recent GI or hemorrhage (w/in previous 21 days): No - Add'l Relative Exclusion 3-4.5 hr Age > 80: Yes Hx of both diabetes AND prior ischemic stroke: No Taking an oral anticoagulant regardless of INR: No NIHSS >25: No - Ineligibility reason(s) Reasons No tPA given: See reason(s) noted above NIH Stroke Scale - Last Known Well Date/Time & Onset Date Last Known Well: 06/26/18 Time Last Known Well: 18:15 - Initial Evaluation Level of consciousness: Coma Ask patient the month and their age: Both incorrect Ask patient to open & close eyes; make fist and let go: Both incorrect Best gaze (horizontal eye movement): Forced deviation Visual field testing: No visual field loss Facial paresis (Show teeth/raise eyebrows/close eyes tight): Normal symmetrical movement Motor Function: Left Arm: No effort against gravity Motor Function: Right Arm: No effort against gravity Motor Function: Left Leg: No effort against gravity Motor Function: Right Leg: Untestable )Joint fused orlimb amputated), explain: Limb Ataxia: Untestable (Joint fused or limb amputated), explain: Sensory(Use pinprick test arms,legs,trunk,face/side to side): Normal Best language (Describe picture, name items, read sentences): Mute Dysarthria (read several words): Intubated or other physical barrierr, explain: Extinction and Inattention: No abnormality - Total Score NIH Stroke Scale Score: 21 Past History - Past Medical History Allergies/Adverse Reactions: Allergies Allergy/AdvReac Type Severity Reaction Status Date / Time No Known Allergies Allergy Verified 06/27/18 17:42 Home Medications: Ambulatory Orders Acetaminophen [Tylenol] 650 mg PO Q4H PRN 06/27/18 Aspirin [ASA -] 81 mg PO DAILY 06/27/18 Atorvastatin Ca [Lipitor] 20 mg PO HS 06/27/18 Docusate Liquid [Colace Liquid -] 30 mg PO DAILY 06/27/18 Gabapentin [Neurontin -] 100 mg PO Q8H 06/27/18 Lactulose (Oral Use) [Cephulac -] 20 gm PO Q2H 06/27/18 Levothyroxine Sodium [Levo-T] 88 mcg PO DAILY 06/27/18 Lisinopril 5 mg PO DAILY 06/27/18 Mag Hydrox/Al Hydrox/Simeth [Mylanta Oral Suspension -] 30 ml PO Q4H PRN Metoprolol Tartrate [Lopressor -] 25 mg PO BID 06/27/18 Nitrofurantoin Macrocrystal [Macrodantin -] 50 mg PO QID 06/27/18 Phenazopyridine HCl [Pyridium -] 100 mg PO TID 06/27/18 Polyethylene Glycol 3350 [Glycolax] 17 gm PO DAILY 06/27/18 Quetiapine Fumarate [Seroquel -] 12.5 mg PO Q6H 06/27/18 Sennosides [Senna] 2 tab PO HS 06/27/18 Tamsulosin HCl [Flomax] 0.4 mg PO DAILY 06/27/18 traZODone HCL [Trazodone HCl] 50 mg PO HS 06/27/18 CVA: Yes (per chart 6mnths ago with no deficit, 05/16 right side deficit/aphasia. ) COPD: Yes HTN: Yes Thyroid Disease: Yes - Immunization History Immunization Up to Date: Yes - Suicide/Smoking/Psychosocial Hx Smoking Status: No Smoking History: Current every day smoker Have you smoked in the past 12 months: No Number of Cigarettes Smoked Daily: 0 If you are a former smoker, when did you quit?: 1995 Information on smoking cessation initiated: No Hx Alcohol Use: No Drug/Substance Use Hx: No Substance Use Type: None Hx Substance Use Treatment: No Review of Systems - Review of Systems Comments:: 06/27/18 19:25 Unable to provide 13 point ROS inspection. *Physical Exam - Vital Signs Last Vital Signs Temp Pulse Resp BP Pulse Ox 98.4 F 111 H 22 H 137/55 L 100 06/27/18 17:40 06/27/18 18:40 06/27/18 18:40 06/27/18 18:40 06/27/18 18:40 - Physical Exam Comments: 06/27/18 19:23 GENERAL: Patient obtunded, unresponsive. HEAD: No signs of trauma, normocephalic, atraumatic EYES: PERRLA, EOMI, sclera anicteric, conjunctiva clear ENT: Auricles normal inspection, nares patent, oropharynx clear without exudates. Moist mucosa NECK: Normal ROM, supple, no lymphadenopathy, JVD, or masses LUNGS: Diffuse coarse breath sounds, agonal respirations. HEART: Regular rate and rhythm, normal S1 and S2, no murmurs, rubs or gallops, peripheral pulses normal and equal bilaterally. ABDOMEN: Soft, nontender, normoactive bowel sounds. No guarding, no rebound. No masses EXTREMITIES : Normal inspection, Normal range of motion, no edema. No clubbing or cyanosis. NEUROLOGICAL: Pupils fixed and dilated, unresponsive to verbal/tactile/painful stimuli. SKIN: Warm, Dry, normal turgor, no rashes or lesions noted Procedures - Intubation Time of Intubation: 07:00 Intubation Method: nasotracheal Blade used: Mac Tube Size (Fr): 8.0 Medications: Etomidate, Succinylcholine Tube position @ lip (cm): 22 Tube position confirmed by: Direct visualization, CO2 detector, Chest x-ray, Breath sounds Breath Sounds after Intubation: equal Intubation Complications: no complications Post Intubation Xray: Yes ED Treatment Course - LABORATORY CBC & Chemistry Diagram: 06/27/18 18:04 06/27/18 18:04 - ADDITIONAL ORDERS Additional order review: Laboratory Results 06/27/18 06/27/18 06/27/18 18:04 18:04 18:04 PT with INR INR VBG pH 7.37 POC VBG pCO2 44.9 POC VBG pO2 159 H VBG HCO3 25.1 VBG O2 Sat (Nati) 99.1 H VBG Base Excess 0.1 Sodium 140 Potassium 3.2 L Chloride 104 Carbon Dioxide 27 Anion Gap 9 BUN 17 Creatinine 0.5 L Creat Clearance w eGFR 118.42 POC Glucometer Random Glucose 173 H Calcium 9.0 Total Bilirubin 0.5 AST 18 ALT 17 Alkaline Phosphatase 101 Creatine Kinase 51 Troponin I 0.05 Total Protein 6.7 Albumin 3.2 L Blood Type Cancelled Antibody Screen Cancelled 06/27/18 06/27/18 18:04 17:52 PT with INR 13.00 INR 1.10 H VBG pH POC VBG pCO2 POC VBG pO2 VBG HCO3 VBG O2 Sat (Nati) VBG Base Excess Sodium Potassium Chloride Carbon Dioxide Anion Gap BUN Creatinine Creat Clearance w eGFR POC Glucometer 166 Random Glucose Calcium Total Bilirubin AST ALT Alkaline Phosphatase Creatine Kinase Troponin I Total Protein Albumin Blood Type Antibody Screen 06/27/18 06/27/18 18:04 17:52 RBC 4.24 MCV 85.6 MCHC 33.5 RDW 14.7 MPV 10.1 Neutrophils % 93.7 H Lymphocytes % 3.5 L D Monocytes % 2.4 L Eosinophils % 0.1 Basophils % 0.3 POC Glucometer 166 - RADIOLOGY Radiology Studies Ordered: 06/27/18 20:21 Patient Information: : 1935 Order Type: Preliminary Name: SANTINO PALACIOS Sex: F Study Description: CT HEAD Modality: CT Location: [facility] Referring Physician: CHRIS CONLEY ADDENDUM Comments: Erick Zuniga MD wrote on Jun 27, 2018 at 08:02 PM: Referring Physician: CHRIS DE This finding was verbally communicated to Dr. Díaz on ThuJune 27 2018 18:59: 08 EDT. One or more of the following dose reduction techniques were used: automated exposure control, adjustment of the mA and/or kV according to patient size, use of iterative reconstructive technique. THIS DOCUMENT HAS BEEN ELECTRONICALLY SIGNED Erick Zuniga MD 06/27/2018 20:01 EST M.D. Please call [facility] [employer] [phone] with questions. Erick Zuniga MD Comments: Erick Zuniga MD wrote on Jun 27, 2018 at 06:57 PM: Referring Physician: CHRIS CONLEY CONFIDENTIALITY NOTICE: This information is intended only for the use of the recipient(s) named above. If you are not the intended recipient, or a person responsible for delivering it to the intended recipient, you are hereby notified that any disclosure, copying, distribution or use of any of the information contained in or attached to this transmission is STRICTLY PROHIBITED. If you have received this transmission in error, please immediately notify [facility] [employer] and destroy the original transmission and its attachments without saving them in any manner [address] [place] [address] [place] [address] Phone: [phone] Fax: Email: [email or web address] Web: [email or web address] Patient Information: : 1935 Order Type: Preliminary Name: SANTINO PALACIOS Sex: F Study Description: CT HEAD Modality: CT Location: [facility] Referring Physician: CHRIS CONLEY Patient Name: PHILIP DE THIS IS A PRELIMINARY REPORT FROM IMAGING ORDER CHECKER DATE OF SERVICE: 2018-06-27 18:10:46 IMAGES: 152 EXAM: HEAD CT (STROKE) HISTORY: Unresponsive COMPARISON: None. FINDINGS: There is a large intraparenchymal hemorrhage in the right hemisphere which measures 11.7 x 7.2 cm axially and 6.6 cm in craniocaudal dimension There is subfalcine herniation with leftward shift of approximately 2.5 cm. Effacement of the cortical sulci and right lateral and third ventricles Area of hypoattenuation in the upper left parasagittal parietal lobe concerning for vasogenic edema. Cannot exclude an underlying mass Areas of decreased attenuation in the periventricular white matter compatible with chronic CONFIDENTIALITY NOTICE: This information is intended only for the use of the recipient(s) named above. If you are not the intended recipient, or a person responsible for delivering it to the intended recipient, you are hereby notified that any disclosure, copying, distribution or use of any of the information contained in or attached to this transmission is STRICTLY PROHIBITED. If you have received this transmission in error, please immediately notify [facility] [employer] and destroy the original transmission and its attachments without saving them in any manner [address] [facility] [address] [place] [address] Phone: [phone] Fax: Email: [email or web address] Web: [email or web address] Patient Information: : 1935 Order Type: Preliminary Name: SANTINO PALACIOS Sex: F Study Description: CT HEAD Modality: CT Location: [facility] Referring Physician: CHRIS CONLEY microvascular ischemia The calvarium is intact Small amount of secretions in the right maxillary sinus. The remaining paranasal sinuses are clear One or more of the following dose reduction techniques were used: automated exposure control, adjustment of the mA and/or kV according to patient size, use of iterative reconstructive technique. THIS DOCUMENT HAS BEEN ELECTRONICALLY SIGNED Erick Zuniga MD 06/27/2018 18:56 EST M.D. Please call [facility] [employer] [phone]) with questions. Erick Zuniga MD Clinicians - Please contact [facility] [employer] with further questions at [phone]) Patients - Please contact your Ordering Provider with questions. Medical Decision Making - Medical Decision Making 06/27/18 19:21 83 yo F with h/o HTN, COPD, hypothyroidism, left frontal lobe hemorrhagic stroke with residual deficits (04/2018), [facility] ) unresponsive.97% O2 on NRB, HR 53, vitals otherwise wnl. Patient with diffuse crackels, coarse lung sounds, unresponsive/obtunded, fixed/dilated pupils. Possible Intracerebral hemorrhage. Will assess for VBI/TIA, cardiac dysarrythmias, hypoglycemia, electrolyte abnml, metabolic and toxic derangements , acid-base disturbances, infection. ED course: Patient intubated following RSI Etomidate 20 mg, Susscinylcholine 100 mg Per Radiology project/production manager imaging patient with diffuse R sided intrapernchymal hemmorhage, and 2.5 cm L shift, and subfalcine herniation. Per Dr. Stockton Neurosurgery patient not a candidate for neurosurgical intervention. Poor prognosis. Agrees with current management, Plan to admit ICU. Started on Keppra 1500 mg Elevated head of bed 45 degrees. 06/27/18 19:31 Laboratory Tests 06/27/18 06/27/18 06/27/18 18:04 18:04 18:04 WBC 19.6 H Hgb 12.2 Hct 36.3 Plt Count 299 Neutrophils % 93.7 H INR 1.10 H VBG pH POC VBG pCO2 POC VBG pO2 Potassium 3.2 L BUN 17 Creatinine 0.5 L Troponin I 0.05 06/27/18 18:04 WBC Hgb Hct Plt Count Neutrophils % INR VBG pH 7.37 POC VBG pCO2 44.9 POC VBG pO2 159 H Potassium BUN Creatinine Troponin I Sepsis Protocol intiated Potassium given Pt. remains sedated 06/27/18 20:14 Discussed findings with pt. family at bedside, plan for comfort measures, family discussed understanding that pt. not surgical candidate. Patient endorsed to Dr. Casas, accepted to ICU 06/27/18 20:21 CTH: There is a large intraparenchymal hemorrhage in the right hemisphere which measures 11.7 x 7.2 cm axially and 6.6 cm in craniocaudal dimension There is subfalcine herniation with leftward shift of approximately 2.5 cm. Effacement of the cortical sulci and right lateral and third ventricles Area of hypoattenuation in the upper left parasagittal parietal lobe concerning for vasogenic edema. Cannot exclude an underlying mass Areas of decreased attenuation in the periventricular white matter compatible with chronic microvascular ischemia The calvarium is intact Small amount of secretions in the right maxillary sinus. The remaining paranasal sinuses are clear Pt. endorsed to Dr. Alcantar. Dr. Alcantar Accepted admission. PMD Dr. Cecilio Noel *DC/Admit/Observation/Transfer Diagnosis at time of Disposition: Intraparenchymal hemorrhage of brain, Endotracheally intubated - Discharge Dispostion Decision to Admit order: Yes - Referrals - Patient Instructions - Post Discharge Activity
[2018-06-27] MEDS ORDERED: levETIRAcetam 500 MG/5 ML INJECTION VIAL IVPB ONE ×2 (19:16→19:22)
[2018-06-27 19:53] LABS: ANISOCYTOSIS 3+; MACROCYTOSIS 0; OVALOCYTE 1+; PLATELET ESTIMATE NORMAL
[2018-06-27] MEDS ORDERED: POTASSIUM CHLORIDE 20 MEQ PREMIX IVPB 100 ML IVPB ONE (19:59)
[2018-06-27] MEDS ORDERED: KCL 10 MEQ IVPB 20 MEQ/200 ML INFUS.BAG IVPB ONE (20:05)
[2018-06-27] MEDS ORDERED: SODIUM CHLORIDE 2,177 ML IV ONE ×2 (20:14→20:59)
--- NOTE | 2018-06-27 20:15 | PDOC ---
Documentation entered by Emile Adair SCRIBE, acting as scribe for Jasmin Lama MD. Jasmin Lama MD: This documentation has been prepared by the tyreseibeGiovany Daniel, SCRIBE, under my direction and personally reviewed by me in its entirety. I confirm that the documentation accurately reflects all work, treatment, procedures, and medical decision making performed by me. Attending Attestation - HPI HPI: 06/27/18 18:07 The patient is a 83 year old female with a past medical history of hypothyroidism, HTN, COPD, and acute hemorrhagic stroke (05/18/18) with right hemiplegia and delayed speech brought in today by EMS from [place] for evaluation of unresponsiveness. The patients family reports that they found the patient at 3:15 PM today unresponsive covered in feces and vomit. Allergies: NKA PCP: Cecilio Noel - Physicial Exam PE: 06/27/18 18:07 GENERAL: 83 yo female BIBA nonverbal,unresponsive w agonal breathing and fixed pupils HEENT: +dry mucuous membranes. Normocephalic, atraumatic. Pupils 5 mm No conjunctival pallor. Sclera are non-icteric. Old ecchymosis evident on face NECK: Supple. Full ROM. No JVD. Carotid pulses 2+ and symmetric, without bruits. No thyromegaly. No lymphadenopathy. CARDIOVASCULAR: Regular rate and rhythm. No murmurs, rubs, or gallops. Distal pulses are 2+ and symmetric. PULMONARY: No evidence of respiratory distress. Lungs clear to auscultation bilaterally. No wheezing, rales or rhonchi. ABDOMINAL: Soft. Non-tender. Non-distended. No rebound or guarding. No organomegaly. Normoactive bowel sounds. MUSCULOSKELETAL No bony deformities EXTREMITIES: No cyanosis. No clubbing. No edema. No calf tenderness. SKIN: Warm and dry. Normal capillary refill. No rashes. No jaundice. NEUROLOGICAL: pt arrived unresponsive with dilated pupils, nonverbal. +right hemiplegia. 06/27/18 19:01 - Critical Care Time Total Critical Care Time: 90 Critical Care Statement: The care of this patient involved high complexity decision making to prevent further life threatening deterioration of the patient 's condition and/or to evaluate & treat vital organ system(s) failure or risk of failure. - Medical Decision Making 06/27/18 19:05 Patient brought in by ambulance unresponsive. She is coming from [facility]. Her family found her unresponsive at 3:15. Reviewing old records, she had a acute hemorrhagic stroke on May 16 that showed a left frontal hemorrhagic bleed at that time and according to her daughter. She was conversant and they speaking at length a month after her stroke. There is visiting her last use was at her baseline, which was apparently she thought she was alert and conversant 06/27/18 19:53 Radiologist from imaging collection systems modeler reports of right diffuse intraparenchymal right hemisphere bleed. The bleed is approximately 11.7 cm x 7 cm with a 2.5 cm shift and herniation Since status is full code at this time. Both daughters are bedside and informed of the patient's grave diagnosis Neurosurgeon Dr. Marah Stockton was consulted and states that there is nothing he can do at this time and that the patient's prognosis is very grave 06/27/18 20:15 pt admitted to ICU
[2018-06-27] MEDS ORDERED: QUEtiapine FUMARATE 25 MG TABLET (FP) PO SCH (21:00)
[2018-06-27] MEDS ORDERED: MAG HYDROX/AL HYDROX/SIMETH 30 ML UNIT-DOSE CUP PO PRN (21:00)
[2018-06-27] MEDS ORDERED: LACTULOSE 20 GM/30 ML UDC (FOR ORAL USE ONLY) PO SCH (21:00)
--- NOTE | 2018-06-27 21:22 | CONSULT ---
Consultation: REQUESTING PROVIDER: Dr. Díaz CONSULT REQUEST: We have been asked to medically evaluate this patient for hemorrhagic stroke. 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 Patient off sedation and unresponsive to verbal or tactile stimuli, both pupil non reactive, right pupil dilated. NO family at bed side From [facility] PHYSICAL EXAMINATION Vital Signs - 24 hr 06/27/18 06/27/18 06/27/18 17:40 18:23 18:38 Temperature 98.4 F Pulse Rate 53 L Pulse Rate [ 63 Apical] Respiratory 12 23 H Rate Blood Pressure 148/57 L Blood Pressure 185/51 H [Right Arm] O2 Sat by Pulse 97 97 98 Oximetry (%) 06/27/18 06/27/18 06/27/18 18:40 18:45 19:30 Temperature Pulse Rate Pulse Rate [ 111 H 54 L Apical] Respiratory 22 H 12 15 Rate Blood Pressure Blood Pressure 137/55 L 126/55 L [Right Arm] O2 Sat by Pulse 100 100 Oximetry (%) GENERAL: intubated ; not sedated ; HEAD: Normal with no signs of trauma. EYES: pupil non reactive ; right pupil fixed and dilated; THROAT:dry mucus membranes; with ET tube in place NECK: without lymphadenopathy, JVD, or masses. LUNGS: scattered rhonchi HEART: Regular rate and rhythm, normal S1 and S2 without murmur, rub or gallop. ABDOMEN: Soft, nontender, not distended, normoactive bowel sounds, no guarding, UPPER EXTREMITIES: 2+ pulses, warm, well-perfused. No cyanosis. No clubbing. Cap refill <2 seconds. No peripheral edema. LOWER EXTREMITIES: 2+ pulses, warm, well-perfused. No calf tenderness. No peripheral edema. NEUROLOGICAL: unresponsive to verbal and tactile stimuli; responds to pain; pupil non reactive; Laboratory Results - last 24 hr 06/27/18 06/27/18 06/27/18 17:52 18:04 18:04 WBC 19.6 H RBC 4.24 Hgb 12.2 Hct 36.3 MCV 85.6 MCH 28.7 MCHC 33.5 RDW 14.7 Plt Count 299 MPV 10.1 Absolute Neuts (auto) 18.4 H Neutrophils % 93.7 H Neutrophils % (Manual) 93.0 H Band Neutrophils % 0.0 Lymphocytes % 3.5 L D Lymphocytes % (Manual) 2.0 L Monocytes % 2.4 L Monocytes % (Manual) 2 L Eosinophils % 0.1 Eosinophils % (Manual) 1.0 Basophils % 0.3 Basophils % (Manual) 0.0 Myelocytes % (Man) 0 Promyelocytes % (Man) 0 Blast Cells % (Manual) 0 Nucleated RBC % 0 Metamyelocytes 0 Hypochromia 0 Platelet Estimate Normal Platelet Comment Present Polychromasia 0 Poikilocytosis 1+ Anisocytosis 3+ Microcytosis 1+ Macrocytosis 0 Ovalocytes 1+ Mariia Cells 1+ PT with INR 13.00 INR 1.10 H VBG pH POC VBG pCO2 POC VBG pO2 VBG HCO3 VBG O2 Sat (Nati) VBG Base Excess Sodium Potassium Chloride Carbon Dioxide Anion Gap BUN Creatinine Creat Clearance w eGFR POC Glucometer 166 Random Glucose Calcium Total Bilirubin AST ALT Alkaline Phosphatase Creatine Kinase Troponin I Total Protein Albumin Blood Type Antibody Screen 06/27/18 06/27/18 06/27/18 18:04 18:04 18:04 WBC RBC Hgb Hct MCV MCH MCHC RDW Plt Count MPV Absolute Neuts (auto) Neutrophils % Neutrophils % (Manual) Band Neutrophils % Lymphocytes % Lymphocytes % (Manual) Monocytes % Monocytes % (Manual) Eosinophils % Eosinophils % (Manual) Basophils % Basophils % (Manual) Myelocytes % (Man) Promyelocytes % (Man) Blast Cells % (Manual) Nucleated RBC % Metamyelocytes Hypochromia Platelet Estimate Platelet Comment Polychromasia Poikilocytosis Anisocytosis Microcytosis Macrocytosis Ovalocytes [place] Cells PT with INR INR VBG pH 7.37 POC VBG pCO2 44.9 POC VBG pO2 159 H VBG HCO3 25.1 VBG O2 Sat (Nati) 99.1 H VBG Base Excess 0.1 Sodium 140 Potassium 3.2 L Chloride 104 Carbon Dioxide 27 Anion Gap 9 BUN 17 Creatinine 0.5 L Creat Clearance w eGFR 118.42 POC Glucometer Random Glucose 173 H Calcium 9.0 Total Bilirubin 0.5 AST 18 ALT 17 Alkaline Phosphatase 101 Creatine Kinase 51 Troponin I 0.05 Total Protein 6.7 Albumin 3.2 L Blood Type Cancelled Antibody Screen Cancelled Active Medications Generic Name Dose Route Start Last Admin Trade Name Freq PRN Reason Stop Dose Admin Al Hydroxide/Mg Hydroxide 30 ml 06/27/18 21:00 Mylanta Oral Suspension - PO Q4H PRN CONSTIPATION Atorvastatin Calcium 20 mg 06/27/18 22:00 Lipitor - PO HS [facility] Chlorhexidine Gluconate 1 applic 06/27/18 22:00 Hibiclens For Decolonization - TP HS [facility] Gabapentin 100 mg 06/27/18 21:00 Neurontin - PO Q8H [facility] Sodium Chloride 2,177 mls @ 1,088.5 mls/hr 06/27/18 20:59 Normal Saline - 30 ml/kg infuse over 2 hr (2177 ml) 06/27/18 22:13 IV ONCE ONE Lactulose 20 gm 06/27/18 21:00 Cephulac (Oral Use) PO Q2H [facility] Levetiracetam 500 mg 06/27/18 22:00 Keppra Injection - IVPB BID [facility] Levothyroxine Sodium 88 mcg 06/28/18 10:00 Synthroid - PO DAILY [facility] Lisinopril 5 mg 06/28/18 10:00 Prinivil PO DAILY [facility] Mupirocin 1 applic 06/27/18 22:00 Bactroban Ointment (For Decolonization) - NS 07/02/18 21:59 BID [facility] Quetiapine Fumarate 12.5 mg 06/27/18 21:00 Seroquel - PO Q6H [facility] Senna 2 tab 06/27/18 22:00 Senna - PO HS [facility] Tamsulosin HCl 0.4 mg 06/28/18 08:30 Flomax - PO DAILY@0830 [facility] HEAD CT: There is a large intrasparenchymal hemmorrhage in the right hemisphere which measures 11.7x 7.2cm axilly and 6.6cm in craniocaudal dimension There is subfalcine herniation with leftward shift of approximately 2.5cn. Effacement of the cortical sulci and right lateral third ventricles. Area of hypoattention in the upper left parasagittal paroetal lobe concerming for vasogenic edema. Cannot exclude underlying mass. ASSESSMENT/PLAN: This is a 83 year old female with a history of recent hemorrhagic stroke, hypothyroid, htn , cva, who presents unresponsive, found to have large right hemorrhagic stoke. Acute Hemorrhagic Stroke Leukocytosis h/o CVA HTN Hypothyroidism -neuro checks -empiric antiepileptics -aspiration precautions -BP control keep systolic bp <160 -aspiration precautions -neurosurgery Dr. Stockton; reports nothing to do as per ER resident -UA, UC, BLD cultures, empiric antibiotics Dispo: We will continue to follow the patient. Thank you for this consultative opportunity. Visit type - Emergency Visit Emergency Visit: Yes Care time: The patient presented to the Emergency Department on the above date and was hospitalized for further evaluation of their emergent condition. - New Patient This patient is new to me today: Yes Date on this admission: 06/27/18 - Critical Care Critical Care patient: Yes Total Critical Care Time (in minutes): 40 Critical Care Statement: The care of this patient involved high complexity decision making to prevent further life threatening deterioration of the patient 's condition and/or to evaluate & treat vital organ system(s) failure or risk of failure.
[2018-06-27 21:40] LABS: EPI CELLS 13.3 /HPF (0-5/HPF); URINE APPEARANCE CLOUDY; URINE BILIRUBIN 2+ (NEGATIVE); URINE CASTS 46 /lpf (0-8); URINE COLOR ORANGE; URINE GLUCOSE (UA) NEGATIVE (NEGATIVE); URINE KETONE 2+ (NEGATIVE); URINE LEUK ESTERASE 2+ (NEGATIVE); URINE NITRITE POSITIVE (NEGATIVE); URINE PROTEIN 2+ (NEGATIVE); URINE WBC 20 /hpf (0-5)
[2018-06-27] MEDS ORDERED: levETIRAcetam 500 MG/5 ML INJECTION VIAL IVPB SCH (22:00)
[2018-06-27] MEDS ORDERED: ATORVASTATIN CA 20 MG TABLET (FP) PO SCH (22:00)
[2018-06-27 22:15] LABS: URINE RBC 1218.8 /hpf (0-4); YEAST MODERATE (NEGATIVE)
[2018-06-27] MEDS ORDERED: PIPERACILLIN/TAZOB 3.375 GM 3.375 GM in DEXTROSE 5%-WATER - 50 ML IVPB ONE (22:30)
[2018-06-27 22:32] LABS: INR 1.11 (0.83-1.09); PROTHROMBIN TIME (PATIENT) 13.1 SEC (9.7-13.0)
[2018-06-27 22:35] LABS: ACTIVATED PTT 27.7 SECONDS (25.2-36.5)
[2018-06-27] MEDS ORDERED: LABETALOL HCL 5 MG/1 ML (100MG/20 ML VIAL) ONE (22:38)
[2018-06-27] MEDS ORDERED: LABETALOL HCL 5 MG/1 ML (100MG/20 ML VIAL) IVPUSH ONE (22:45)
[2018-06-27] MEDS ORDERED: VANCOMYCIN 1,000 MG in DEXTROSE 5%-WATER - 250 ML IVPB ONE (23:00)
[2018-06-27] MEDS ORDERED: PIPERACILLIN/TAZOBACTAM 3.375 GM VIAL IVPB ONE (23:39)
[2018-06-27] MEDS ORDERED: DEXTROSE 5%-WATER - 50 ML IVPB ONE (23:39)
[2018-06-27 23:43] LABS: ARTERIAL BLOOD GAS BASE EXCESS -2.3 meq/l (-2-2); ARTERIAL BLOOD GAS PCO2 42.6 mmHg (35-45); ARTERIAL BLOOD GAS pH 7.35 (7.35-7.45)
[2018-06-27] MEDS ORDERED: MORPHINE 100 MG in SODIUM CHLORIDE 98 ML IVPB SCH (23:45)
[2018-06-27 23:46] LABS: ALLENS TEST POSITIVE; ARTERIAL BLD GAS O2 SATURATION 43.8 % (95-98)
[2018-06-28] MEDS ORDERED: morphine SULFATE 4 MG/ML VIAL IVPUSH ONE (00:26)
[2018-06-28] MEDS ORDERED: morphine CARPU-JECT 4 MG/1 ML DISP.SYRIN IVPUSH ONE (00:26)
[2018-06-28] MEDS ORDERED: morphine SULFATE 4 MG/ML VIAL ONE (00:37)
[2018-06-28 02:11] VITALS: BMI 25.6
--- NOTE | 2018-06-28 02:32 | HP ---
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) - Smoking History Smoking history: Current every day smoker Have you smoked in the past 12 months: No Aproximately how many cigarettes per day: 0 If you are a former smoker, when did you quit?: 1995 - Alcohol/Substance Use Hx Alcohol Use: No - Social History ADL: Independent Home Medications - Allergies Allergies/Adverse Reactions: Allergies Allergy/AdvReac Type Severity Reaction Status Date / Time No Known Allergies Allergy Verified 06/27/18 17:42 - Home Medications Home Medications: Ambulatory Orders Acetaminophen [Tylenol] 650 mg PO Q4H PRN 06/27/18 Aspirin [ASA -] 81 mg PO DAILY 06/27/18 Atorvastatin Ca [Lipitor] 20 mg PO HS 06/27/18 Docusate Liquid [Colace Liquid -] 30 mg PO DAILY 06/27/18 Gabapentin [Neurontin -] 100 mg PO Q8H 06/27/18 Lactulose (Oral Use) [Cephulac -] 20 gm PO Q2H 06/27/18 Levothyroxine Sodium [Levo-T] 88 mcg PO DAILY 06/27/18 Lisinopril 5 mg PO DAILY 06/27/18 Mag Hydrox/Al Hydrox/Simeth [Mylanta Oral Suspension -] 30 ml PO Q4H PRN Metoprolol Tartrate [Lopressor -] 25 mg PO BID 06/27/18 Nitrofurantoin Macrocrystal [Macrodantin -] 50 mg PO QID 06/27/18 Phenazopyridine HCl [Pyridium -] 100 mg PO TID 06/27/18 Polyethylene Glycol 3350 [Glycolax] 17 gm PO DAILY 06/27/18 Quetiapine Fumarate [Seroquel -] 12.5 mg PO Q6H 06/27/18 Sennosides [Senna] 2 tab PO HS 06/27/18 Tamsulosin HCl [Flomax] 0.4 mg PO DAILY 06/27/18 traZODone HCL [Trazodone HCl] 50 mg PO HS 06/27/18 Physical Examination Vital Signs: Vital Signs Temperature 98.4 F 06/27/18 17:40 Pulse Rate 60 06/28/18 02:00 Respiratory Rate 26 H 06/28/18 02:00 Blood Pressure 134/50 L 06/28/18 00:00 O2 Sat by Pulse Oximetry (%) 45 L 06/27/18 23:45 Labs: CBC, BMP 06/27/18 18:04 06/27/18 18:04
[2018-06-28] MEDS ORDERED: LEVOTHYROXINE NA 88 MCG TABLET (FP) PO SCH (07:00)
[2018-06-28] MEDS: GABAPENTIN 100 MG CAPSULE (FP) PO SCH ×2 (07:05)
[2018-06-28] MEDS ORDERED: TAMSULOSIN HCL 0.4 MG CAP PO SCH (08:30)
[2018-06-28] MEDS ORDERED: MUPIROCIN 2% TOPICAL OINTMENT FOR DECOLONIZATION NS SCH (10:00)
[2018-06-28] MEDS ORDERED: LISINOPRIL 5 MG TABLET (FP) PO SCH (10:00)
--- NOTE | 2018-06-28 10:57 | EKG ---
Test Reason : Blood Pressure : / mmHG Vent. Rate : 068 BPM Atrial Rate : 068 BPM P-R Int : 156 ms QRS Dur : 130 ms QT Int : 462 ms P-R-T Axes : 080 089 034 degrees QTc Int : 491 ms NORMAL SINUS RHYTHM RIGHT BUNDLE BRANCH BLOCK ABNORMAL ECG WHEN COMPARED WITH ECG OF 16-MAY-2018 11:53, NO SIGNIFICANT CHANGE WAS FOUND Confirmed by EDDIE WARD MD ([id number]) on 06/28/2018 10:57:07 AM Referred By: Confirmed By:EDDIE WARD MD
[2018-06-28] MEDS ORDERED: LORazepam 2 MG/ML SDV VIAL IVPUSH PRN (12:10)
--- NOTE | 2018-06-28 12:43 | PN ---
Physical Exam: SUBJECTIVE: Patient seen this morning and asleep. OBJECTIVE: Vital Signs Temperature 98.4 F 06/27/18 17:40 Pulse Rate 44 L 06/28/18 08:06 Respiratory Rate 15 06/28/18 08:07 Blood Pressure 134/50 L 06/28/18 00:00 O2 Sat by Pulse Oximetry (%) 45 L 06/27/18 23:45 GENERAL: The patient is asleep LUNGS: Breath sounds equal, clear to auscultation bilaterally HEART: Regular rate and rhythm, S1, S2 without murmur, rub or gallop. ABDOMEN: Soft, nontender, nondistended, normoactive bowel sounds EXTREMITIES: 2+ pulses, warm, well-perfused, no edema. SKIN: Warm, dry, normal turgor, no rashes or lesions noted CBCD WBC 19.6 K/mm3 (4.0-10.0) H 06/27/18 18:04 RBC 4.24 M/mm3 (3.60-5.2) 06/27/18 18:04 Hgb 12.2 GM/dL (10.7-15.3) 06/27/18 18:04 Hct 36.3 % (32.4-45.2) 06/27/18 18:04 MCV 85.6 fl (80-96) 06/27/18 18:04 MCHC 33.5 g/dl (32.0-36.0) 06/27/18 18:04 RDW 14.7 % (11.6-15.6) 06/27/18 18:04 Plt Count 299 K/MM3 (134-434) 06/27/18 18:04 MPV 10.1 fl (7.5-11.1) 06/27/18 18:04 CMP Sodium 140 mmol/L (136-145) 06/27/18 18:04 Potassium 3.2 mmol/L (3.5-5.1) L 06/27/18 18:04 Chloride 104 mmol/L (98-107) 06/27/18 18:04 Carbon Dioxide 27 mmol/L (21-32) 06/27/18 18:04 Anion Gap 9 MMOL/L (8-16) 06/27/18 18:04 BUN 17 mg/dL (7-18) 06/27/18 18:04 Creatinine 0.5 mg/dL (0.55-1.3) L 06/27/18 18:04 Creat Clearance w eGFR 118.42 (>60) 06/27/18 18:04 Calcium 9.0 mg/dL (8.5-10.1) 06/27/18 18:04 Total Bilirubin 0.5 mg/dL (0.2-1) 06/27/18 18:04 AST 18 U/L (15-37) 06/27/18 18:04 ALT 17 U/L (13-61) 06/27/18 18:04 Alkaline Phosphatase 101 U/L (45-117) 06/27/18 18:04 Total Protein 6.7 g/dl (6.4-8.2) 06/27/18 18:04 Albumin 3.2 g/dl (3.4-5.0) L 06/27/18 18:04 Active Medications Morphine Sulfate 100 mg/ (Sodium Chloride) 100 mls @ 1 mls/hr IVPB TITR [facility]; Protocol Last Admin: 06/28/18 00:32 Dose: 1 mg/hr, 1 mls/hr Lorazepam (Ativan Injection -) 1 mg IVPUSH Q6H PRN PRN Reason: AGITATION Senna (Senna -) 2 tab PO HS [facility] Last Admin: 06/28/18 00:00 Dose: Not Given Tamsulosin HCl (Flomax -) 0.4 mg PO DAILY@0830 [facility] Last Admin: 06/28/18 08:24 Dose: Not Given ASSESSMENT/PLAN: Patient is a 83 y/o female with a history of hemorrhagic stroke, HTN, and hypothyroidism who presents for new hemorrhagic stroke. Neuro - head CT: large acute intraparenchymal hemmorage, hx of old hemmorhagic stroke - DNR/ DNI comfort care only - morphine drip, can add scopalamine if excess saliva - ativan as needed Cardio - hx HTN - hold all meds Pulm - continue to monitor Fen - hold fluids, hold feeding Dispo: private room on med surg for compassionate weaning measures Visit type - Emergency Visit Emergency Visit: No - New Patient This patient is new to me today: Yes Date on this admission: 06/28/18 - Critical Care Critical Care patient: Yes Total Critical Care Time (in minutes): 35 Critical Care Statement: The care of this patient involved high complexity decision making to prevent further life threatening deterioration of the patient 's condition and/or to evaluate & treat vital organ system(s) failure or risk of failure.
--- NOTE | 2018-06-28 12:49 | CON.ID ---
Consult Consult Specialty:: infectious diseases Referred by:: Reason for Consultation:: aspiration,uti - History of Present Illness Chief Complaint: ams History of Present Illness: 83 yo F with h/o HTN, hypothyroidism, hemorrhagic stroke, BIBEMS unresponsive. Patient discovered by family unresponsive to verbal, tactile, painful stimuli at approximately 319 PM, with subsequent whole body convulsions lasting for seconds x 2. Last known well was yesterday (06/26/18) whereby patient was A&Ox3 , verbal with patient family, and able to follow commands, up with assistance. Patient vomited NBNB two time in prison per family. 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) - Alcohol/Substance Use Hx Alcohol Use: No - Smoking History Smoking history: Current every day smoker Have you smoked in the past 12 months: No Aproximately how many cigarettes per day: 0 If you are a former smoker, when did you quit?: 1995 - Social History Usual Living Arrangement: With Child ADL: Independent Home Medications - Allergies Allergies/Adverse Reactions: Allergies Allergy/AdvReac Type Severity Reaction Status Date / Time No Known Allergies Allergy Verified 06/27/18 17:42 - Home Medications Home Medications: Ambulatory Orders Acetaminophen [Tylenol] 650 mg PO Q4H PRN 06/27/18 Aspirin [ASA -] 81 mg PO DAILY 06/27/18 Atorvastatin Ca [Lipitor] 20 mg PO HS 06/27/18 Docusate Liquid [Colace Liquid -] 30 mg PO DAILY 06/27/18 Gabapentin [Neurontin -] 100 mg PO Q8H 06/27/18 Lactulose (Oral Use) [Cephulac -] 20 gm PO Q2H 06/27/18 Levothyroxine Sodium [Levo-T] 88 mcg PO DAILY 06/27/18 Lisinopril 5 mg PO DAILY 06/27/18 Mag Hydrox/Al Hydrox/Simeth [Mylanta Oral Suspension -] 30 ml PO Q4H PRN Metoprolol Tartrate [Lopressor -] 25 mg PO BID 06/27/18 Nitrofurantoin Macrocrystal [Macrodantin -] 50 mg PO QID 06/27/18 Phenazopyridine HCl [Pyridium -] 100 mg PO TID 06/27/18 Polyethylene Glycol 3350 [Glycolax] 17 gm PO DAILY 06/27/18 Quetiapine Fumarate [Seroquel -] 12.5 mg PO Q6H 06/27/18 Sennosides [Senna] 2 tab PO HS 06/27/18 Tamsulosin HCl [Flomax] 0.4 mg PO DAILY 06/27/18 traZODone HCL [Trazodone HCl] 50 mg PO HS 06/27/18 Review of Systems Unable to obtain ROS, reason: unable to obtain Physical Exam Vital Signs: Vital Signs Temperature 98.4 F 06/27/18 17:40 Pulse Rate 44 L 06/28/18 08:06 Respiratory Rate 15 06/28/18 08:07 Blood Pressure 134/50 L 06/28/18 00:00 O2 Sat by Pulse Oximetry (%) 45 L 06/27/18 23:45 Constitutional: Yes: Calm, Other (ams) HENT: Yes: Atraumatic, Other (injury on lateral side of the head) Neck: Yes: Supple Cardiovascular: Yes: Regular Rate and Rhythm Respiratory: Yes: On Nasal O2, Other (crackles) Gastrointestinal: Yes: Normal Bowel Sounds, Soft Musculoskeletal: Yes: WNL Extremities: Yes: WNL Neurological: Yes: Lethargy, Other Labs: CBC, BMP 06/27/18 18:04 06/27/18 18:04 Imaging - Results Chest X-ray: Report Reviewed, Image Reviewed Cat Scan: Report Reviewed, Image Reviewed Assessment/Plan 83 year old female with a history of recent hemorrhagic stroke, hypothyroid, htn , cva, who presents unresponsive, found to have large right hemorrhagic stoke. Acute Hemorrhagic Stroke Leukocytosis h/o CVA HTN Hypothyroidism r/o asp pn plan continue supportive measures family at the moment does not want any aggressive measures will hold of starting abx as the family does not want it await for all cx reports rest as per icu cc 40 min
--- NOTE | 2018-06-28 12:51 | PN ---
Teaching Attending Note Name of Resident: Maureen Reddy ATTENDING PHYSICIAN STATEMENT I saw and evaluated the patient. I reviewed the resident's note and discussed the case with the resident. I agree with the resident's findings and plan as documented. SUBJECTIVE: Pt seen and examined in the ICU. Overnight events reviewed, pt now extubated on morphine gtt. Family at bedside. OBJECTIVE: Vital Signs Period Temp Pulse Resp BP Sys/Manuel Pulse Ox Last 24 Hr 98.4 F 42-111 12-28 126-222/48-102 45-100 Intake & Output 06/25/18 06/26/18 06/27/18 06/28/18 23:59 23:59 23:59 23:59 Intake Total 1055 Output Total 1000 200 Balance -1000 855 Weight 63.503 kg 55.293 kg Gen: lethargic, mildly tachypneic Heart: RRR Lung: scattered rhonchi Abd: soft, nontender Ext: no edema CBC, BMP 06/27/18 18:04 06/27/18 18:04 Active Medications Morphine Sulfate 100 mg/ (Sodium Chloride) 100 mls @ 1 mls/hr IVPB TITR [facility]; Protocol Last Admin: 06/28/18 00:32 Dose: 1 mg/hr, 1 mls/hr Lorazepam (Ativan Injection -) 1 mg IVPUSH Q6H PRN PRN Reason: AGITATION Senna (Senna -) 2 tab PO HS [facility] Last Admin: 06/28/18 00:00 Dose: Not Given Tamsulosin HCl (Flomax -) 0.4 mg PO DAILY@0830 [facility] Last Admin: 06/28/18 08:24 Dose: Not Given ASSESSMENT AND PLAN: Acute Hypoxic Respiratory Failure Acute Large Hemorrhagic Stroke HTN Hypothyroidism h/o CVA - comfort measures - titrate morphine gtt to RR <25 - ativan as needed - scopolamine if increased secretions - discussed with family at bedside - can transfer to floor
[2018-06-28] MEDS ORDERED: CHLORHEXIDINE GLUCONATE 4% CLEANSER FOR DECOLONIZATION TP SCH (22:00)
[2018-06-28] MEDS: SENNOSIDES 8.6MG TABLET (FP) PO SCH ×2 (22:12)
--- NOTE | 2018-06-28 23:04 | PN ---
Progress Note, Physician - Current Medication List Current Medications: Active Medications Morphine Sulfate 100 mg/ (Sodium Chloride) 100 mls @ 1 mls/hr IVPB TITR [facility]; Protocol Last Titration: 06/28/18 18:00 Dose: 4 mg/hr, 4 mls/hr Lorazepam (Ativan Injection -) 1 mg IVPUSH Q6H PRN PRN Reason: AGITATION Senna (Senna -) 2 tab PO HS [facility] Last Admin: 06/28/18 22:12 Dose: Not Given Tamsulosin HCl (Flomax -) 0.4 mg PO DAILY@0830 [facility] Last Admin: 06/28/18 08:24 Dose: Not Given - Objective Vital Signs: Vital Signs Temperature 98.4 F 06/27/18 17:40 Pulse Rate 44 L 06/28/18 08:06 Respiratory Rate 15 06/28/18 08:07 Blood Pressure 134/50 L 06/28/18 00:00 O2 Sat by Pulse Oximetry (%) 45 L 06/27/18 23:45 Labs: CBC, BMP 06/27/18 18:04 06/27/18 18:04 INR, PTT INR 1.11 (0.83-1.09) H 06/27/18 22:10
[2018-06-29] MEDS ORDERED: MORPHINE 100 MG in SODIUM CHLORIDE 98 ML IVPB SCH (04:46)
[2018-06-29] MEDS ORDERED: LORazepam 2 MG/ML SDV VIAL IVPUSH PRN (04:46)
[2018-06-29 07:54] VITALS: BP 162/64; PULSE 58; TEMP 97.5
--- NOTE | 2018-06-29 09:16 | HOSP ---
Subjective - Review of Symptoms General: Yes: Other HEENT: Yes: Other Pulmonary: Yes: Other Cardiovascular: Yes: Other Gastrointestinal: Yes: Other Genitourinary: Yes: Other Musculoskeletal: Yes: Other Neurological: Yes: Other Physical Examination Vital Signs: Vital Signs Temperature 97.5 F L 06/29/18 06:00 Pulse Rate 58 L 06/29/18 06:00 Respiratory Rate 16 06/29/18 06:00 Blood Pressure 162/64 06/29/18 06:00 O2 Sat by Pulse Oximetry (%) 45 L 06/27/18 23:45 Constitutional: Yes: [place] Eyes: Yes: Other HENT: Yes: Other Cardiovascular: Yes: Other Respiratory: Yes: Other Gastrointestinal: Yes: Other Labs: CBC, BMP 06/27/18 18:04 06/27/18 18:04 Hospitalist Encounter Assessment: PRONOUNCEMENT Called by primary RN to come see patient for unresponsiveness. On exam patient is laying in bed unresponsive, no response to verbal or tactile stimuli. pupils fixed and dilated No breath sounds were appreciated over either lung sound. no carotid pulses were palpated . no heart sounds auscultated patient is listed as COMFORT MEASURES ONLY and on a morphine drip for comfort. TIME: 0915am DATE: JUNE 29/2019 called and informed. condolences offered. informed me that he has a pre-burial done for his and will be contacting them. Primary care doctor aware by credit card control clerk Post mortum care per protocol to be done by primary care RN fuentes calderon data input clerk [phone]
== END 2018-06-29 11:55 | disposition expired | DRG 64 ==
LOC: JER 17:38 → JERBED 19:37 → JICU 22:40 → J5S 06-28 20:00
PROVIDERS: ADMIT Internal Medicine; ATTEND Internal Medicine
PROC: 0CHY7BZ Insertion of Airway into Mouth and Throat, Via Natural or Artificial Opening (ICD-10-PCS; principal; 2018-06-27)
PROC: 5A1935Z Respiratory Ventilation, Less than 24 Consecutive Hours (ICD-10-PCS; 2018-06-27)
DX: I62.9 Nontraumatic intracranial hemorrhage, unspecified (principal); J96.01 Acute respiratory failure with hypoxia; G93.6 Cerebral edema; G81.91 Hemiplegia, unspecified affecting right dominant side; I10 Essential (primary) hypertension; E03.9 Hypothyroidism, unspecified; R29.721 NIHSS score 21; J44.9 Chronic obstructive pulmonary disease, unspecified; F17.210 Nicotine dependence, cigarettes, uncomplicated; D72.829 Elevated white blood cell count, unspecified; Z66 Do not resuscitate
CPT/HCPCS: 36415; 36600; 70450-TC; 71045-TC-FY; 80053; 81003; 82550; 82803; 82962; 83605; 84484; 85025; 85610; 85730; 87040; 87077; 87086; 87186; 93005; 93010; 99285-25; J7030